=== PATIENT | male | born 1950 | race Caucasian/White ===

== ENCOUNTER 2017-02-12 17:33 | Emergency (ER) | payer SELFPAY ==
[~2017-02-12] VITALS: Ht 182.9 cm; Wt 80.0 kg
[2017-02-12] MEDS ORDERED: AMOXICILLIN/POTASSIUM CLAVULANATE 875/125MG TAB PO ONE (19:30)
[2017-02-12] MEDS ORDERED: KETOROLAC 60MG/2ML VIAL IM ONE (19:30)
[2017-02-12] MEDS ORDERED: TRAMADOL 50MG TABLET PO ONE (19:30)
[2017-02-12 23:14] VITALS: BP 175/88
== END 2017-02-12 23:18 | disposition home or self-care (01) ==
LOC: ER 17:33
DX: S92.355A Nondisplaced fracture of fifth metatarsal bone, left foot, initial encounter for closed fracture (principal); I10 Essential (primary) hypertension; E11.9 Type 2 diabetes mellitus without complications; F17.210 Nicotine dependence, cigarettes, uncomplicated; V19.3XXA Pedal cyclist (driver) (passenger) injured in unspecified nontraffic accident, initial encounter; Y93.89 Activity, other specified; Y92.89 Other specified places as the place of occurrence of the external cause
CPT/HCPCS: 73630; 96372; 99284; J1885; Z7610

== ENCOUNTER 2017-02-15 10:04 | Emergency (ER) | payer SELFPAY ==
[~2017-02-15] VITALS: Ht 172.7 cm; Wt 73.0 kg
[2017-02-15] MEDS ORDERED: IBUPROFEN 600MG TABLET PO ONE (12:00)
[2017-02-15 13:14] VITALS: BP 209/87
== END 2017-02-15 13:35 | disposition home or self-care (01) ==
LOC: ER 10:04
DX: S92.352A Displaced fracture of fifth metatarsal bone, left foot, initial encounter for closed fracture (principal); E11.9 Type 2 diabetes mellitus without complications; I10 Essential (primary) hypertension; F17.200 Nicotine dependence, unspecified, uncomplicated; V98.8XXA Other specified transport accidents, initial encounter; Y93.55 Activity, bike riding; Y99.8 Other external cause status; Y92.89 Other specified places as the place of occurrence of the external cause
CPT/HCPCS: 29515; 99283; Z7610

== ENCOUNTER 2018-08-09 20:55 | Inpatient (IN) | payer MEDICAID, OTHER ==
[~2018-08-09] VITALS: Ht 172.7 cm; Wt 89.8 kg
[2018-08-09] MEDS ORDERED: METHYLPREDNISOLONE SOD SUCC 125 MG/2 ML VIAL IV STA (21:02)
[2018-08-09] MEDS ORDERED: IPRATROPIUM BROMIDE (0.02%) 0.5MG/2.5ML NEB HHN STA (21:02)
[2018-08-09] MEDS ORDERED: MAGNESIUM 2 G PREMIX 50 ML IV ONE (21:15)
[2018-08-09 21:25] LABS: BASOPHILS % 0.9 % (0.0-2.0); EOSINOPHILS % 6.3 % (0.0-5.0); HEMATOCRIT. 30.7 % (42.0-52.0); HEMOGLOBIN. 10.1 g/dL (14.0-18.0); LYMPHOCYTES % 21.9 % (20.0-50.0); MEAN CORPUSCULAR HEMOGLOBIN 30.1 pg (28.0-32.0); MEAN CORPUSCULAR VOLUME 91.2 fL (80.0-94.0); MEAN PLATELET VOLUME 10.6 fl (7.4-10.4); MONOCYTES % 10.2 % (2.0-8.0); NEUTROPHILS % 60.7 % (40.0-76.0); PLATELET 227 x1000/uL (130-400); RED BLOOD CELL COUNT 3.36 mill/uL (4.7-6.1); RED CELL DISTRIBUTION WIDTH 13.6 % (11.6-14.6)
[2018-08-09 21:28] LABS: CHLORIDE 105 mEq/L (98-107)
[2018-08-09] MEDS ORDERED: ALBUTEROL (0.083%) 2.5MG/3ML NEB HHN SCH (21:30)
[2018-08-09] MEDS ORDERED: LEVOFLOXACIN 750MG PREMIX 150 ML IV ONE (22:30)
[2018-08-10] VITALS (26 sets, daily range): BP systolic 116–201; BP diastolic 48–110
[2018-08-10] MEDS ORDERED: AMLO10TA80 PO (01:22)
[2018-08-10] MEDS ORDERED: DOCU-150 PO (01:22)
[2018-08-10] MEDS ORDERED: SODI325T PO (01:22)
[2018-08-10] MEDS ORDERED: DOCU100T PO (01:22)
[2018-08-10] MEDS ORDERED: ATOR-2 PO (01:22)
[2018-08-10] MEDS ORDERED: FURO-151 PO (01:22)
[2018-08-10] MEDS ORDERED: INSU100I13 SQ (01:22)
[2018-08-10] MEDS ORDERED: HYDR-4135 PO (01:22)
[2018-08-10] MEDS ORDERED: LABE200T28 PO (01:22)
[2018-08-10] MEDS ORDERED: LANTUSUD SUBCUT (01:22)
[2018-08-10] MEDS ORDERED: BISA-81 PO (01:22)
[2018-08-10] MEDS ORDERED: ONDANSETRON HCL 4MG/2ML INJ IV PRN (02:15)
[2018-08-10] MEDS ORDERED: PIPERACILLIN/TAZ 3.375G PREMIX 50 ML IV SCH (02:15)
[2018-08-10] MEDS ORDERED: IPRATROPIUM/ALBUTEROL 0.5-3(2.5)MG/3ML NEB INH PRN (02:15)
[2018-08-10] MEDS ORDERED: ACETAMINOPHEN 325MG TABLET PO PRN (02:15)
[2018-08-10] MEDS ORDERED: GUAIFENESIN 200MG/10ML SUGAR FREE UDC PO PRN (02:15)
[2018-08-10] MEDS ORDERED: DEXTROSE 50% WATER 50ML SYRINGE IV PRN (02:30)
[2018-08-10] MEDS: CLONIDINE 0.1MG TABLET PO PRN ×2 (02:52→11:46)
[2018-08-10] MEDS: PIPERACILLIN/TAZ 2.25G PREMIX 50 ML IV SCH ×2 (04:07→11:44)
[2018-08-10] MEDS: INSULIN LISPRO 100 UNITS/ML SUBCUT SCH ×5 (05:16→21:40)
[2018-08-10] MEDS: METHYLPREDNISOLONE SOD SUCC 40 MG/ML VIAL IV SCH ×2 (05:51→13:07)
[2018-08-10] MEDS ORDERED: IPRATROPIUM/ALBUTEROL 0.5-3(2.5)MG/3ML NEB INH SCH (06:00)
[2018-08-10 07:37] LABS: BG BASE EXCESS -8.7 mmol/L (-2.0-2.0); BG CARBOXYHEMOGLOBIN 0.3 % (0.5-1.5); BG DEOXYHEMOGLOBIN 3.4 % (0.0-5.0); BG HCO3 ACT 16.2 mmol/L (22.0-26.0); BG METHEMOGLOBIN 0.3 % (0.0-1.5); BG OXYGEN SATURATION 96.6 % (92.0-98.5); BG PCO2 30.7 mmHg (35.0-45.0); BG PH 7.339 (7.350-7.450); BG PO2 98.4 mmHg (75.0-100.0); BG SAMPLE SITE RIGHT RADIAL; BG TOTAL HEMOGLOBIN 8.7 g/dL (12.0-18.0); BG VENT MODE NASAL CANNULA
[2018-08-10] MEDS: BLOOD SUGAR DIAGNOSTIC STRIP TEST SCH ×4 (07:49→21:01)
[2018-08-10 08:05] LABS: CREATINE KINASE MB FRACTION 26.2 ng/mL (0.5-3.6)
[2018-08-10] MEDS ORDERED: FUROSEMIDE 40MG/4ML VIAL IV SCH (09:00)
[2018-08-10] MEDS ORDERED: ENOXAPARIN 80MG/0.8ML SYR SUBCUT SCH (09:00)
[2018-08-10] MEDS: AMLODIPINE 10MG TABLET PO SCH (09:24)
[2018-08-10] MEDS ORDERED: HEPARIN 25,000 UNITS PREMIX 500 ML IV SCH (11:15)
[2018-08-10] MEDS ORDERED: INSULIN LISPRO 100 UNITS/ML SUBCUT NR (13:00)
[2018-08-10] MEDS: NITROGLYCERIN OINT 1GM/INCH UDPKT TD SCH (14:04)
[2018-08-10] MEDS ORDERED: NITROGLYCERIN 0.2MG/HR PATCH TOP SCH (14:30)
[2018-08-10] MEDS: NICOTINE 21MG PATCH TD SCH (16:45)
[2018-08-10 16:56] LABS: INR 1.2; PARTIAL THROMBOPLASTIN TIME 30.1 sec (23.4-31.0); PROTHROMBIN TIME 11.6 sec (9.1-11.1)
[2018-08-10 17:00] LABS: PHOSPHORUS 5.1 mg/dL (2.5-4.9)
[2018-08-10 17:04] LABS: T4 FREE 0.84 ng/dL (0.76-1.46)
[2018-08-10 17:05] LABS: CREATINE KINASE MB FRACTION 18.4 ng/mL (0.5-3.6)
[2018-08-10] MEDS ORDERED: FUROSEMIDE 100MG/10ML VIAL IV SCH (17:15)
[2018-08-10] MEDS ORDERED: ASPIRIN 81MG TABLET PO NR (18:15)
[2018-08-10] MEDS ORDERED: INSULIN GLARGINE UD 100 UNITS/ML SYR SUBCUT NR (21:30)
[2018-08-10] MEDS: ATORVASTATIN CALCIUM 40MG TABLET PO SCH (21:39)
[2018-08-10] MEDS: CARVEDILOL 3.125 MG TABLET PO SCH (21:39)
[2018-08-11] VITALS (51 sets, daily range): BP systolic 104–195; BP diastolic 43–88
[2018-08-11] MEDS: NITROGLYCERIN OINT 1GM/INCH UDPKT TD SCH ×2 (01:43→13:39)
[2018-08-11 03:41] LABS: CLARITY URINE CLEAR (CLEAR); COLOR URINE ORANGE (YELLOW); KETONES URINE NEGATIVE (NEGATIVE); LEUKOCYTE ESTERASE URINE NEGATIVE (NEGATIVE); NITRITE URINE NEGATIVE (NEGATIVE); OCCULT BLOOD URINE 2+ (NEGATIVE); PROTEIN URINE 4+ (NEGATIVE); SPECIFIC GRAVITY URINE 1.015 (1.005-1.030); UROBILINOGEN URINE 0.2 E.U./dL (0.2-1.0)
[2018-08-11 03:49] LABS: *AMPHETAMINES SCREEN URINE NEGATIVE (NEGATIVE)
[2018-08-11 03:50] LABS: *BARBITURATES SCREEN URINE NEGATIVE (NEGATIVE); *BENZODIAZEPINES SCREEN URINE NEGATIVE (NEGATIVE); *COCAINE SCREEN URINE NEGATIVE (NEGATIVE); CANNABINOID URINE SCREEN NEGATIVE (NEGATIVE); METHADONE URINE SCREEN NEGATIVE (NEGATIVE); OPIATES URINE SCREEN NEGATIVE (NEGATIVE); PHENCYCLIDINE URINE SCREEN NEGATIVE (NEGATIVE)
[2018-08-11] MEDS ORDERED: HEPARIN BOLUS PRN aPTT <30 IV (06:00)
[2018-08-11] MEDS ORDERED: HEPARIN 60 UNITS/KG BOLUS IV NR (06:00)
[2018-08-11] MEDS: HEPARIN 25,000 UNITS PREMIX 500 ML IV SCH ×2 (06:15→14:36)
[2018-08-11 06:43] LABS: HEMOGLOBIN. 8.7 g/dL (14.0-18.0); MEAN CORPUSCULAR VOLUME 89.8 fL (80.0-94.0); PLATELET 207 x1000/uL (130-400); RED CELL DISTRIBUTION WIDTH 13.4 % (11.6-14.6)
[2018-08-11 06:49] LABS: CHLORIDE 105 mEq/L (98-107)
[2018-08-11 06:57] LABS: HDL CHOLESTEROL 46 mg/dL (40-59)
[2018-08-11 06:58] LABS: LDL CHOLESTEROL 80 mg/dL (5-100)
[2018-08-11] MEDS: BLOOD SUGAR DIAGNOSTIC STRIP TEST SCH ×4 (08:41→21:00)
[2018-08-11] MEDS: INSULIN LISPRO 100 UNITS/ML SUBCUT SCH ×4 (08:48→20:33)
[2018-08-11] MEDS: CARVEDILOL 3.125 MG TABLET PO SCH ×2 (08:49→20:32)
[2018-08-11] MEDS: ASPIRIN 81MG TABLET PO SCH (08:49)
[2018-08-11] MEDS: NICOTINE 21MG PATCH TD SCH (08:49)
[2018-08-11] MEDS: AMLODIPINE 10MG TABLET PO SCH (08:49)
[2018-08-11] MEDS: INSULIN GLARGINE UD 100 UNITS/ML SYR SUBCUT SCH (10:30)
[2018-08-11 12:43] LABS: HEPATITIS B SURFACE AB < 3.1 mIU/mL
[2018-08-11 12:53] LABS: HEPATITIS B SURFACE ANTIGEN NEGATIVE
[2018-08-11 13:06] LABS: PLATELET ESTIMATE NORMAL
[2018-08-11] MEDS ORDERED: HEPARIN SODIUM 1,000 UNIT/1ML VIAL IV NR (14:45)
[2018-08-11] MEDS: HEPARIN BOLUS PRN aPTT 30-44 IV ×2 (14:50→21:13)
[2018-08-11] MEDS ORDERED: MANNITOL 12.5G (25%) VIAL 50ML IV NR (14:55)
[2018-08-11] MEDS: HYDRALAZINE 20MG/ML VIAL IV PRN (18:15)
[2018-08-11] MEDS: ATORVASTATIN CALCIUM 40MG TABLET PO SCH (20:32)
[2018-08-12] VITALS (38 sets, daily range): BP systolic 136–200; BP diastolic 57–132
[2018-08-12] MEDS: NITROGLYCERIN OINT 1GM/INCH UDPKT TD SCH ×2 (02:36→14:17)
[2018-08-12] MEDS: POLYVINYL ALCOHOL OPHTH DROPS 15ML BOTHEYE SCH ×5 (02:36→23:12)
[2018-08-12] MEDS: HYDRALAZINE 20MG/ML VIAL IV PRN (04:05)
[2018-08-12] MEDS: HEPARIN 25,000 UNITS PREMIX 500 ML IV SCH ×2 (06:17→23:13)
[2018-08-12 07:50] LABS: BASOPHILS % 1.1 % (0.0-2.0); EOSINOPHILS % 2.9 % (0.0-5.0); HEMATOCRIT. 27.9 % (42.0-52.0); HEMOGLOBIN. 9.2 g/dL (14.0-18.0); LYMPHOCYTES % 16.6 % (20.0-50.0); MEAN CORPUSCULAR HEMOGLOBIN 29.7 pg (28.0-32.0); MEAN CORPUSCULAR VOLUME 89.7 fL (80.0-94.0); MEAN PLATELET VOLUME 11.1 fl (7.4-10.4); MONOCYTES % 11.2 % (2.0-8.0); NEUTROPHILS % 68.2 % (40.0-76.0); PLATELET 197 x1000/uL (130-400); RED CELL DISTRIBUTION WIDTH 13.8 % (11.6-14.6)
[2018-08-12] MEDS: BLOOD SUGAR DIAGNOSTIC STRIP TEST SCH ×4 (07:51→21:46)
[2018-08-12] MEDS: AMLODIPINE 10MG TABLET PO SCH (08:09)
[2018-08-12] MEDS: CARVEDILOL 3.125 MG TABLET PO SCH ×2 (08:09→21:42)
[2018-08-12] MEDS: ASPIRIN 81MG TABLET PO SCH (08:09)
[2018-08-12] MEDS: INSULIN LISPRO 100 UNITS/ML SUBCUT SCH ×4 (08:10→21:45)
[2018-08-12] MEDS: NICOTINE 21MG PATCH TD SCH (08:10)
[2018-08-12 08:11] LABS: PHOSPHORUS 5.8 mg/dL (2.5-4.9)
[2018-08-12] MEDS: INSULIN GLARGINE UD 100 UNITS/ML SYR SUBCUT SCH (09:48)
[2018-08-12] MEDS: HEPARIN BOLUS PRN aPTT 30-44 IV (14:55)
[2018-08-12] MEDS: CLONIDINE 0.1MG TABLET PO PRN (17:18)
[2018-08-12] MEDS: ATORVASTATIN CALCIUM 40MG TABLET PO SCH (21:42)
[2018-08-13] VITALS (41 sets, daily range): BP systolic 131–200; BP diastolic 58–111
[2018-08-13] MEDS: NITROGLYCERIN OINT 1GM/INCH UDPKT TD SCH ×2 (05:01→15:47)
[2018-08-13] MEDS: POLYVINYL ALCOHOL OPHTH DROPS 15ML BOTHEYE SCH ×4 (05:01→23:53)
[2018-08-13] MEDS: HYDRALAZINE 20MG/ML VIAL IV PRN (05:02)
[2018-08-13 06:05] LABS: BASOPHILS % 1.3 % (0.0-2.0); EOSINOPHILS % 4.8 % (0.0-5.0); HEMOGLOBIN. 8.4 g/dL (14.0-18.0); LYMPHOCYTES % 17.4 % (20.0-50.0); MEAN CORPUSCULAR HEMOGLOBIN 30.3 pg (28.0-32.0); MEAN CORPUSCULAR VOLUME 90.1 fL (80.0-94.0); MEAN PLATELET VOLUME 10.8 fl (7.4-10.4); MONOCYTES % 12.2 % (2.0-8.0); NEUTROPHILS % 64.3 % (40.0-76.0); PLATELET 179 x1000/uL (130-400); RED BLOOD CELL COUNT 2.77 mill/uL (4.7-6.1); RED CELL DISTRIBUTION WIDTH 13.5 % (11.6-14.6)
[2018-08-13 06:24] LABS: PHOSPHORUS 7.5 mg/dL (2.5-4.9)
[2018-08-13] MEDS: INSULIN LISPRO 100 UNITS/ML SUBCUT SCH ×4 (08:20→22:50)
[2018-08-13] MEDS: BLOOD SUGAR DIAGNOSTIC STRIP TEST SCH ×4 (08:42→21:00)
[2018-08-13] MEDS ORDERED: IODIXANOL 320MG/ML 100 ML BOTTLE IV ONE (09:03)
[2018-08-13] MEDS ORDERED: LIDOCAINE HCL 1% 20ML VIAL (Pyxis) INJ ONE ×2 (09:03→11:51)
[2018-08-13] MEDS: AMLODIPINE 10MG TABLET PO SCH (09:33)
[2018-08-13] MEDS: ASPIRIN 81MG TABLET PO SCH (09:34)
[2018-08-13] MEDS: CARVEDILOL 3.125 MG TABLET PO SCH ×2 (09:34→20:45)
[2018-08-13] MEDS: NICOTINE 21MG PATCH TD SCH (09:37)
[2018-08-13] MEDS: INSULIN GLARGINE UD 100 UNITS/ML SYR SUBCUT SCH (10:00)
[2018-08-13] MEDS ORDERED: HEPARIN SODIUM 1,000 UNIT/1ML VIAL IV ONE (10:11)
[2018-08-13] MEDS ORDERED: IOHEXOL-300 100 ML BOTTLE ONE (11:51)
[2018-08-13] MEDS ORDERED: MIDAZOLAM HCL 2 MG/2 ML VIAL ONE (12:25)
[2018-08-13] MEDS ORDERED: FENTANYL CITRATE/PF 50MCG/ML 2ML VIAL ONE (12:26)
[2018-08-13] MEDS ORDERED: ACETAMINOPHEN 325MG TABLET PO PRN (13:00)
[2018-08-13] MEDS ORDERED: ATROPINE SULFATE 1MG/10ML SYR IV PRN (13:00)
[2018-08-13] MEDS: ATORVASTATIN CALCIUM 40MG TABLET PO SCH (20:45)
[2018-08-13] MEDS: CLONIDINE 0.1MG TABLET PO PRN (21:30)
[2018-08-14] VITALS (54 sets, daily range): BP systolic 120–182; BP diastolic 53–79
[2018-08-14] MEDS: NITROGLYCERIN OINT 1GM/INCH UDPKT TD SCH ×2 (01:34→12:48)
[2018-08-14] MEDS: POLYVINYL ALCOHOL OPHTH DROPS 15ML BOTHEYE SCH ×4 (05:06→23:25)
[2018-08-14] MEDS: CLONIDINE 0.1MG TABLET PO PRN ×2 (05:36→19:00)
[2018-08-14 06:08] LABS: EOSINOPHILS % 4.5 % (0.0-5.0); HEMATOCRIT. 27.6 % (42.0-52.0); HEMOGLOBIN. 9.2 g/dL (14.0-18.0); MEAN CORPUSCULAR HEMOGLOBIN 30.1 pg (28.0-32.0); MEAN CORPUSCULAR VOLUME 90.9 fL (80.0-94.0); MEAN PLATELET VOLUME 10.7 fl (7.4-10.4); MONOCYTES % 10.6 % (2.0-8.0); NEUTROPHILS % 70.9 % (40.0-76.0); PLATELET 170 x1000/uL (130-400); RED BLOOD CELL COUNT 3.04 mill/uL (4.7-6.1); RED CELL DISTRIBUTION WIDTH 13.6 % (11.6-14.6)
[2018-08-14 06:58] LABS: PHOSPHORUS 6.2 mg/dL (2.5-4.9)
[2018-08-14] MEDS: BLOOD SUGAR DIAGNOSTIC STRIP TEST SCH ×10 (07:50→23:41)
[2018-08-14] MEDS: INSULIN LISPRO 100 UNITS/ML SUBCUT SCH ×3 (08:06→17:16)
[2018-08-14] MEDS: PANTOPRAZOLE SODIUM 40 MG/VIAL IV SCH (08:15)
[2018-08-14] MEDS: ASPIRIN 81MG TABLET PO SCH (08:15)
[2018-08-14] MEDS: CARVEDILOL 3.125 MG TABLET PO SCH ×2 (08:15→20:43)
[2018-08-14] MEDS: AMLODIPINE 10MG TABLET PO SCH (08:15)
[2018-08-14] MEDS: INSULIN GLARGINE UD 100 UNITS/ML SYR SUBCUT SCH (09:57)
[2018-08-14] MEDS ORDERED: ALPRAZOLAM 0.25 MG TABLET PO PRN (17:00)
[2018-08-14] MEDS ORDERED: NITROGLYCERIN 0.4MG TABLET SL SL PRN (17:00)
[2018-08-14] MEDS ORDERED: INSULIN REGULAR (DRIP) 100 UNITS in SODIUM CHLORIDE 0.9% 99 ML IV PRN (17:45)
[2018-08-14] MEDS ORDERED: DEXTROSE 50% WATER 50ML SYRINGE IV PRN ×2 (17:45)
[2018-08-14] MEDS: INSULIN REGULAR (DRIP) 100 UNITS in SODIUM CHLORIDE 0.9% 100 ML IV SCH (18:13)
[2018-08-14] MEDS: ATORVASTATIN CALCIUM 40MG TABLET PO SCH (20:42)
[2018-08-14] MEDS: ALLOPURINOL 300 MG TABLET PO SCH (20:42)
[2018-08-14] MEDS ORDERED: DIPHENHYDRAMINE 25MG CAPSULE PO PRN (21:00)
[2018-08-14] MEDS ORDERED: BISACODYL 10MG SUPP PR PRN (21:00)
[2018-08-14] MEDS ORDERED: DOCUSATE SODIUM 100MG CAPSULE PO SCH (21:00)
[2018-08-14] MEDS ORDERED: ASCORBIC ACID 500 MG TABLET PO SCH (21:00)
[2018-08-14] MEDS ORDERED: CHLORHEXIDINE GLUCONATE 4% EXTERNAL USE TOP SCH (21:00)
[2018-08-15] VITALS (54 sets, daily range): BP systolic 82–268; BP diastolic 40–267
[2018-08-15] MEDS: BLOOD SUGAR DIAGNOSTIC STRIP TEST SCH ×12 (01:41→23:53)
[2018-08-15] MEDS: NITROGLYCERIN OINT 1GM/INCH UDPKT TD SCH (01:46)
[2018-08-15] MEDS: IPRATROPIUM/ALBUTEROL 0.5-3(2.5)MG/3ML NEB HHN SCH (02:33)
[2018-08-15] MEDS: HYDRALAZINE 20MG/ML VIAL IV PRN (03:33)
[2018-08-15] MEDS: POLYVINYL ALCOHOL OPHTH DROPS 15ML BOTHEYE SCH ×4 (05:21→23:51)
[2018-08-15] MEDS: ALLOPURINOL 300 MG TABLET PO SCH (05:21)
[2018-08-15 05:35] LABS: EOSINOPHILS % 4.6 % (0.0-5.0); HEMATOCRIT. 34.1 % (42.0-52.0); HEMOGLOBIN. 11.3 g/dL (14.0-18.0); LYMPHOCYTES % 14.6 % (20.0-50.0); MEAN CORPUSCULAR HEMOGLOBIN 30.1 pg (28.0-32.0); MEAN CORPUSCULAR VOLUME 90.7 fL (80.0-94.0); MEAN PLATELET VOLUME 10.5 fl (7.4-10.4); MONOCYTES % 10.3 % (2.0-8.0); NEUTROPHILS % 69.5 % (40.0-76.0); PLATELET 155 x1000/uL (130-400); RED BLOOD CELL COUNT 3.76 mill/uL (4.7-6.1); RED CELL DISTRIBUTION WIDTH 13.7 % (11.6-14.6)
[2018-08-15 05:41] LABS: CHLORIDE 113 mEq/L (98-107)
[2018-08-15 05:43] LABS: INR 1.2; PROTHROMBIN TIME 11.6 sec (9.1-11.1)
[2018-08-15] MEDS ORDERED: NOREPINEPHRINE 4 MG in DEXT 5% WATER 246 ML IV SCH (06:00)
[2018-08-15] MEDS ORDERED: VANCOMYCIN 1G PREMIX 200ML IV SCH (06:00)
[2018-08-15] MEDS ORDERED: NICARDIPINE 40MG/200ML PREMIX 200 ML IV SCH (06:00)
[2018-08-15] MEDS ORDERED: DOBUTAMINE HCL IN DEXTROSE 5 % 250 ML IV SCH (06:00)
[2018-08-15] MEDS ORDERED: PAPAVERINE HCL 180MG in SODIUM CHLORIDE 0.9% 24ML IV SCH (06:00)
[2018-08-15] MEDS ORDERED: DEL NIDO ELECTROLYTE-S(PH 7.4) 1,000 ML IV SCH ×2 (06:00)
[2018-08-15] MEDS ORDERED: AMINOCAPROIC ACID 10,000 MG in SODIUM CHLORIDE 0.9% 460 ML IV SCH (06:00)
[2018-08-15] MEDS ORDERED: EPINEPHRINE 4 MG in DEXT 5% WATER 246 ML IV SCH (06:00)
[2018-08-15] MEDS ORDERED: CEFAZOLIN 2,000 MG in DEXT 5% WATER 100 ML IV SCH (06:00)
[2018-08-15] MEDS ORDERED: CEFAZOLIN SODIUM 1000MG/VIAL ONE (06:14)
[2018-08-15] MEDS ORDERED: EPHEDRINE SULFATE 50MG/ML VIAL ONE (06:14)
[2018-08-15] MEDS ORDERED: HEPARIN 1000 UNITS/ML 10ML ONE ×3 (06:14→07:31)
[2018-08-15] MEDS ORDERED: ONDANSETRON HCL 4MG/2ML INJ ONE (06:15)
[2018-08-15] MEDS ORDERED: PROTAMINE SULFATE 10MG/ML VIAL 25ML IV ONE (06:15)
[2018-08-15] MEDS ORDERED: ROCURONIUM BROMIDE 10MG/ML VIAL 5ML IV ONE (06:15)
[2018-08-15] MEDS ORDERED: ETOMIDATE 2MG/ML 10ML VIAL IV ONE (06:16)
[2018-08-15] MEDS ORDERED: ALFENTANIL HCL 500 MCG/ML 2ML AMPUL IJ ONE (06:19)
[2018-08-15] MEDS ORDERED: MIDAZOLAM HCL 2 MG/2 ML VIAL ONE (06:22)
[2018-08-15] MEDS ORDERED: MIDAZOLAM HCL 5 MG/ML VIAL ONE (06:22)
[2018-08-15] MEDS ORDERED: SUFENTANIL CITRATE 50 MCG/ML 5ML AMPUL IV ONE (06:22)
[2018-08-15] MEDS ORDERED: DOPAMINE 400MG/250ML PREMIX 250 ML IV ONE (06:49)
[2018-08-15] MEDS ORDERED: NITROGLYCERIN 50MG PREMIX 250 ML IV ONE (06:49)
[2018-08-15] MEDS ORDERED: THROMBIN (BOVINE) 5000 UNITS/VIAL TOP ONE ×4 (06:57→14:11)
[2018-08-15] MEDS ORDERED: LIDOCAINE HCL/PF 2% 20MG/ML 5 ML/VIAL ONE (07:10)
[2018-08-15] MEDS ORDERED: NORMAL SALINE 0.9% 10 ML SYR ONE (07:13)
[2018-08-15] MEDS ORDERED: METHYLENE BLUE 50 MG/10 ML AMP IV ONE (07:13)
[2018-08-15] MEDS ORDERED: BACITRACIN 15GM TUBE TOP ONE (07:13)
[2018-08-15] MEDS ORDERED: GELATIN SPONGE,ABSORBABLE 12-7MM SPONGE ONE (07:13)
[2018-08-15] MEDS ORDERED: BACITRACIN 50,000 UNITS/VIAL ONE (07:13)
[2018-08-15] MEDS ORDERED: AMINOCAPROIC ACID 250 MG/ML 20ML VIAL ONE (07:29)
[2018-08-15] MEDS ORDERED: AMIODARONE HCL 50MG/ML 3ML VIAL IV ONE (07:29)
[2018-08-15] MEDS ORDERED: PHENYLEPHRINE HCL 10 MG/ML 1ML (IV VIAL) IV ONE (07:30)
[2018-08-15] MEDS ORDERED: CALCIUM CHLORIDE 1GM/10ML SYR IV ONE ×2 (07:30→13:53)
[2018-08-15] MEDS ORDERED: MANNITOL 20% 0 ML IV ONE (07:30)
[2018-08-15] MEDS ORDERED: ALBUMIN HUMAN 25GM/100ML (25%) IV ONE (07:30)
[2018-08-15] MEDS ORDERED: SODIUM BICARBONATE 8.4% 1 MEQ/ML 50ML SYR IV ONE (07:31)
[2018-08-15] MEDS ORDERED: HEPARIN 10,000 UNITS/ML VIAL ONE ×2 (07:31→07:32)
[2018-08-15] MEDS: PANTOPRAZOLE SODIUM 40 MG/VIAL IV SCH (09:00)
[2018-08-15] MEDS ORDERED: CHLORHEXIDINE GLUCONATE 4% EXTERNAL USE TOP SCH (09:00)
[2018-08-15] MEDS ORDERED: SKIN ADHESIVE 0.7 GM EA TOP ONE (11:02)
[2018-08-15] MEDS ORDERED: DESMOPRESSIN ACETATE 4MCG/ML AMP IV SCH (13:30)
[2018-08-15] MEDS ORDERED: DESMOPRESSIN ACETATE 4MCG/ML AMP ONE (13:32)
[2018-08-15] MEDS ORDERED: EPINEPHRINE 0.1MG/ML (1:10,000) 10ML SYR ONE (13:53)
[2018-08-15] MEDS ORDERED: SODIUM BICARBONATE 7.5% 0.9 MEQ/ML 50ML SYR IV ONE (13:53)
[2018-08-15 13:54] LABS: HEMATOCRIT 25.4 % (42.0-52.0); HEMOGLOBIN 8.6 g/dL (14.0-18.0); MEAN CORPUSCULAR HEMOGLOBIN 30.6 pg (28.0-32.0); MEAN CORPUSCULAR VOLUME 90.6 fL (80.0-94.0); RED BLOOD CELL COUNT 2.81 mill/uL (4.7-6.1); RED CELL DISTRIBUTION WIDTH 13.9 % (11.6-14.6)
[2018-08-15 14:00] LABS: INR 1.4; PARTIAL THROMBOPLASTIN TIME 26.7 sec (23.4-31.0); PROTHROMBIN TIME 14.3 sec (9.1-11.1)
[2018-08-15 14:03] LABS: PHOSPHORUS 5.5 mg/dL (2.5-4.9)
[2018-08-15 14:11] LABS: PLATELET 77 x1000/uL (130-400)
[2018-08-15] MEDS ORDERED: SODIUM CHLORIDE 0.9% 500 ML IV PRN (15:53)
[2018-08-15] MEDS ORDERED: ONDANSETRON HCL 4MG/2ML INJ IV PRN (16:00)
[2018-08-15] MEDS ORDERED: OXYCODONE HCL/ACETAMINOPHEN 5/325MG TABLET PO PRN ×2 (16:00)
[2018-08-15] MEDS ORDERED: ACETAMINOPHEN 325MG TABLET PO PRN (16:00)
[2018-08-15] MEDS: MAGNESIUM HYDROXIDE 400MG/5ML 30ML UDC PO SCH ×3 (16:00→23:54)
[2018-08-15] MEDS ORDERED: ALBUMIN HUMAN 12.5G/250ML (5%) IV PRN (16:00)
[2018-08-15] MEDS ORDERED: DOPAMINE 400MG/250ML PREMIX 250 ML IV SCH (16:15)
[2018-08-15] MEDS ORDERED: NITROGLYCERIN 50MG PREMIX 250 ML IV SCH (16:15)
[2018-08-15 16:29] LABS: BG CARBOXYHEMOGLOBIN 0.3 % (0.5-1.5); BG DEOXYHEMOGLOBIN 1.5 % (0.0-5.0); BG FRACTION INSPIRED OXYGEN 100; BG HCO3 ACT 22.6 mmol/L (22.0-26.0); BG METHEMOGLOBIN 0.4 % (0.0-1.5); BG OXYGEN SATURATION 98.5 % (92.0-98.5); BG OXYHEMOGLOBIN 97.8 % (94.0-97.0); BG PH 7.393 (7.350-7.450); BG PO2 202.1 mmHg (75.0-100.0); BG PRESSURE SUPPORT 10; BG SAMPLE SITE A-LINE; BG TOTAL HEMOGLOBIN 8.1 g/dL (12.0-18.0); BG VENT MODE VENT - CPAP
[2018-08-15] MEDS: DEXT 5%/0.45% NACL 1000ML 1,000 ML IV SCH (16:56)
[2018-08-15 16:57] LABS: BASOPHILS % 0.5 % (0.0-2.0); EOSINOPHILS % 1.7 % (0.0-5.0); HEMATOCRIT. 22.9 % (42.0-52.0); HEMOGLOBIN. 7.6 g/dL (14.0-18.0); LYMPHOCYTES % 9.3 % (20.0-50.0); MEAN CORPUSCULAR HEMOGLOBIN 29.8 pg (28.0-32.0); MEAN CORPUSCULAR VOLUME 89.8 fL (80.0-94.0); MEAN PLATELET VOLUME 8.9 fl (7.4-10.4); MONOCYTES % 6.9 % (2.0-8.0); NEUTROPHILS % 81.6 % (40.0-76.0); PLATELET 157 x1000/uL (130-400); RED BLOOD CELL COUNT 2.54 mill/uL (4.7-6.1); RED CELL DISTRIBUTION WIDTH 14.2 % (11.6-14.6)
[2018-08-15] MEDS: INSULIN REGULAR (DRIP) 100 UNITS in SODIUM CHLORIDE 0.9% 99 ML IV SCH (16:57)
[2018-08-15 17:06] LABS: INR 1.3; PARTIAL THROMBOPLASTIN TIME 25.7 sec (23.4-31.0); PROTHROMBIN TIME 12.7 sec (9.1-11.1)
[2018-08-15 17:11] LABS: PHOSPHORUS 5.8 mg/dL (2.5-4.9)
[2018-08-15 17:52] LABS: BG BASE EXCESS -2.4 mmol/L (-2.0-2.0); BG CARBOXYHEMOGLOBIN 0.9 % (0.5-1.5); BG FRACTION INSPIRED OXYGEN 60; BG HCO3 ACT 22.8 mmol/L (22.0-26.0); BG METHEMOGLOBIN 0.4 % (0.0-1.5); BG OXYHEMOGLOBIN 95.7 % (94.0-97.0); BG PH 7.363 (7.350-7.450); BG PO2 105.8 mmHg (75.0-100.0); BG PRESSURE SUPPORT 10; BG SAMPLE SITE A-LINE; BG TOTAL HEMOGLOBIN 7.6 g/dL (12.0-18.0); BG VENT MODE VENT - CPAP
[2018-08-15] MEDS: DOCUSATE SODIUM 100MG CAPSULE PO SCH (18:00)
[2018-08-15] MEDS: MORPHINE SULFATE 4 MG/ML CPJ (NOT FOR IM USE) IV PRN ×2 (18:14→23:10)
[2018-08-15 19:29] LABS: BG CARBOXYHEMOGLOBIN 0.2 % (0.5-1.5); BG DEOXYHEMOGLOBIN 1.8 % (0.0-5.0); BG FRACTION INSPIRED OXYGEN 60; BG HCO3 ACT 21.6 mmol/L (22.0-26.0); BG METHEMOGLOBIN 0.2 % (0.0-1.5); BG OXYGEN SATURATION 98.2 % (92.0-98.5); BG OXYHEMOGLOBIN 97.8 % (94.0-97.0); BG PCO2 36.8 mmHg (35.0-45.0); BG PEEP (cmH2O) 0 cmH2O; BG PH 7.387 (7.350-7.450); BG PIP 11 cmH2O; BG PO2 155.9 mmHg (75.0-100.0); BG PRESSURE SUPPORT 10; BG SAMPLE SITE A-LINE; BG TIDAL VOLUME(mL) 522 mL; BG TOTAL HEMOGLOBIN 8.9 g/dL (12.0-18.0); BG VENT MODE VENT - CPAP
[2018-08-15 19:50] LABS: HEMATOCRIT 25.7 % (42.0-52.0); HEMOGLOBIN 8.5 g/dL (14.0-18.0); MEAN CORPUSCULAR HEMOGLOBIN 29.7 pg (28.0-32.0); MEAN CORPUSCULAR VOLUME 90.1 fL (80.0-94.0); PLATELET 129 x1000/uL (130-400); RED BLOOD CELL COUNT 2.85 mill/uL (4.7-6.1); RED CELL DISTRIBUTION WIDTH 13.9 % (11.6-14.6)
[2018-08-15 19:55] LABS: INR 1.3; PARTIAL THROMBOPLASTIN TIME 29.7 sec (23.4-31.0); PROTHROMBIN TIME 13.5 sec (9.1-11.1)
[2018-08-15 20:01] LABS: PHOSPHORUS 5.2 mg/dL (2.5-4.9)
[2018-08-15] MEDS ORDERED: EPINEPHRINE 1 MG in SODIUM CHLORIDE 0.9% 249 ML IV PRN (21:45)
[2018-08-15] MEDS ORDERED: ALBUMIN HUMAN 12.5G/250ML (5%) IV NR (22:00)
[2018-08-15 22:16] LABS: BG BASE EXCESS -3.7 mmol/L (-2.0-2.0); BG CARBOXYHEMOGLOBIN 0.8 % (0.5-1.5); BG DEOXYHEMOGLOBIN 3.7 % (0.0-5.0); BG FRACTION INSPIRED OXYGEN 10; BG HCO3 ACT 20.4 mmol/L (22.0-26.0); BG METHEMOGLOBIN 0.2 % (0.0-1.5); BG OXYGEN SATURATION 96.3 % (92.0-98.5); BG OXYHEMOGLOBIN 95.3 % (94.0-97.0); BG PCO2 33.2 mmHg (35.0-45.0); BG PEEP (cmH2O) 0 cmH2O; BG PH 7.407 (7.350-7.450); BG PIP 12 cmH2O; BG PO2 96.3 mmHg (75.0-100.0); BG PRESSURE SUPPORT 10; BG SAMPLE SITE A-LINE; BG TIDAL VOLUME(mL) 503 mL; BG TOTAL HEMOGLOBIN 8.3 g/dL (12.0-18.0); BG VENT MODE VENT - CPAP
[2018-08-16] VITALS (149 sets, daily range): BP systolic 0–197; BP diastolic -26–104
[2018-08-16 00:14] LABS: HEMATOCRIT. 22.4 % (42.0-52.0); HEMOGLOBIN. 7.4 g/dL (14.0-18.0); MEAN CORPUSCULAR HEMOGLOBIN 29.5 pg (28.0-32.0); MEAN CORPUSCULAR VOLUME 89.3 fL (80.0-94.0); MEAN PLATELET VOLUME 9.3 fl (7.4-10.4); PLATELET 120 x1000/uL (130-400); RED BLOOD CELL COUNT 2.51 mill/uL (4.7-6.1); RED CELL DISTRIBUTION WIDTH 13.9 % (11.6-14.6)
[2018-08-16 00:28] LABS: BG CARBOXYHEMOGLOBIN 0.5 % (0.5-1.5); BG FRACTION INSPIRED OXYGEN 40; BG HCO3 ACT 20.1 mmol/L (22.0-26.0); BG METHEMOGLOBIN 0.1 % (0.0-1.5); BG OXYHEMOGLOBIN 97.4 % (94.0-97.0); BG PCO2 36.8 mmHg (35.0-45.0); BG PH 7.355 (7.350-7.450); BG PO2 151.7 mmHg (75.0-100.0); BG SAMPLE SITE A-LINE; BG TOTAL HEMOGLOBIN 7.7 g/dL (12.0-18.0); BG VENT MODE MASK - AEROSOL
[2018-08-16] MEDS: BLOOD SUGAR DIAGNOSTIC STRIP TEST SCH ×24 (00:45→23:52)
[2018-08-16 01:10] LABS: BG BASE EXCESS -11.2 mmol/L (-2.0-2.0); BG CARBOXYHEMOGLOBIN 0.6 % (0.5-1.5); BG DEOXYHEMOGLOBIN 8.1 % (0.0-5.0); BG FRACTION INSPIRED OXYGEN 40; BG HCO3 ACT 17.8 mmol/L (22.0-26.0); BG METHEMOGLOBIN 0.3 % (0.0-1.5); BG OXYGEN SATURATION 91.8 % (92.0-98.5); BG PCO2 57.3 mmHg (35.0-45.0); BG PH 7.109 (7.350-7.450); BG SAMPLE SITE A-LINE; BG TOTAL HEMOGLOBIN 7.8 g/dL (12.0-18.0); BG VENT MODE MASK - AEROSOL
[2018-08-16] MEDS ORDERED: SODIUM BICARBONATE 8.4% 1 MEQ/ML 50ML SYR IV NR (01:15)
[2018-08-16 01:47] LABS: BG BASE EXCESS 1.2 mmol/L (-2.0-2.0); BG DEOXYHEMOGLOBIN 1.2 % (0.0-5.0); BG FRACTION INSPIRED OXYGEN 100; BG HCO3 ACT 24.7 mmol/L (22.0-26.0); BG OXYGEN SATURATION 98.8 % (92.0-98.5); BG OXYHEMOGLOBIN 97.8 % (94.0-97.0); BG PCO2 32.7 mmHg (35.0-45.0); BG PH 7.496 (7.350-7.450); BG SAMPLE SITE A-LINE; BG TOTAL HEMOGLOBIN 4.8 g/dL (12.0-18.0); BG VENT MODE AMBU BAG
[2018-08-16] MEDS ORDERED: THROMBIN (BOVINE) 5000 UNITS/VIAL TOP PRN (02:30)
[2018-08-16] MEDS ORDERED: METHYLPREDNISOLONE SOD SUCC 125 MG/2 ML VIAL IV ONE (02:30)
[2018-08-16] MEDS ORDERED: METHYLPREDNISOLONE SOD SUCC 125 MG/2 ML VIAL ONE (02:38)
[2018-08-16] MEDS ORDERED: WATER IV SCH (02:50)
[2018-08-16] MEDS ORDERED: TRANEXAMIC ACID IV SCH (02:50)
[2018-08-16] MEDS ORDERED: DEXT 5% IV SCH (02:50)
[2018-08-16] MEDS ORDERED: INSULIN REGULAR (DRIP) 100 UNITS in SODIUM CHLORIDE 0.9% 99 ML IV PRN (02:50)
[2018-08-16] MEDS ORDERED: MIDAZOLAM HCL 2 MG/2 ML VIAL ONE (02:57)
[2018-08-16] MEDS ORDERED: MIDAZOLAM HCL 5 MG/ML VIAL IV SCH (03:00)
[2018-08-16] MEDS ORDERED: MIDAZOLAM HCL 2 MG/2 ML VIAL IV ONE (03:00)
[2018-08-16] MEDS ORDERED: MORPHINE SULFATE 4 MG/ML CPJ (NOT FOR IM USE) IV SCH (03:00)
[2018-08-16] MEDS ORDERED: VANCOMYCIN 1 G PREMIX 200 ML IV SCH (03:20)
[2018-08-16] MEDS ORDERED: NORMAL SALINE 0.9% 10 ML SYR ONE ×2 (03:36→03:46)
[2018-08-16] MEDS ORDERED: BACITRACIN 50,000 UNITS/VIAL ONE ×2 (03:36→03:46)
[2018-08-16] MEDS: MAGNESIUM HYDROXIDE 400MG/5ML 30ML UDC PO SCH ×6 (04:00→23:30)
[2018-08-16] MEDS ORDERED: SODIUM BICARBONATE 8.4% 1 MEQ/ML 50ML SYR IV ONE (04:08)
[2018-08-16] MEDS ORDERED: CALCIUM CHLORIDE 1GM/10ML SYR IV ONE (04:08)
[2018-08-16] MEDS ORDERED: ROCURONIUM BROMIDE 10MG/ML VIAL 5ML IV ONE (04:08)
[2018-08-16] MEDS ORDERED: INSULIN REGULAR (HUMULIN R) 300UNITS/3ML ONE (04:20)
[2018-08-16] MEDS ORDERED: COAGULATION FACTOR VIIA RECOMB 2MG VIAL IV NR (04:30)
[2018-08-16] MEDS: POLYVINYL ALCOHOL OPHTH DROPS 15ML BOTHEYE SCH ×4 (06:00→23:25)
[2018-08-16 06:14] LABS: BG BASE EXCESS -4.7 mmol/L (-2.0-2.0); BG CARBOXYHEMOGLOBIN 0.8 % (0.5-1.5); BG DEOXYHEMOGLOBIN 1.3 % (0.0-5.0); BG FRACTION INSPIRED OXYGEN 100; BG HCO3 ACT 21.6 mmol/L (22.0-26.0); BG METHEMOGLOBIN 0.6 % (0.0-1.5); BG OXYGEN SATURATION 98.7 % (92.0-98.5); BG OXYHEMOGLOBIN 97.3 % (94.0-97.0); BG PCO2 46.5 mmHg (35.0-45.0); BG PH 7.284 (7.350-7.450); BG SAMPLE SITE A-LINE; BG TIDAL VOLUME(mL) 500 mL; BG TOTAL HEMOGLOBIN 5.5 g/dL (12.0-18.0); BG VENT MODE VENT - A/C; BG VENT RATE 16 set
[2018-08-16] MEDS ORDERED: MORPHINE SULFATE 4 MG/ML CPJ (NOT FOR IM USE) IV ONE (06:19)
[2018-08-16 06:53] LABS: BG BASE EXCESS -1.6 mmol/L (-2.0-2.0); BG CARBOXYHEMOGLOBIN 0.5 % (0.5-1.5); BG DEOXYHEMOGLOBIN 14.5 % (0.0-5.0); BG FRACTION INSPIRED OXYGEN 100; BG HCO3 ACT 23.2 mmol/L (22.0-26.0); BG METHEMOGLOBIN 0.3 % (0.0-1.5); BG OXYGEN SATURATION 85.4 % (92.0-98.5); BG OXYHEMOGLOBIN 84.7 % (94.0-97.0); BG PCO2 39.2 mmHg (35.0-45.0); BG PO2 49.1 mmHg (75.0-100.0); BG SAMPLE SITE PA LINE; BG TIDAL VOLUME(mL) 600 mL; BG TOTAL HEMOGLOBIN 9.2 g/dL (12.0-18.0); BG VENT MODE VENT - CPAP; BG VENT RATE 18 set
[2018-08-16] MEDS ORDERED: AMIODARONE HCL 900 MG in DEXT 5% WATER 500 ML IV PRN (07:00)
[2018-08-16] MEDS ORDERED: AMIODARONE HCL 900 MG in DEXT 5% WATER 482 ML IV PRN (07:00)
[2018-08-16] MEDS ORDERED: AMINOCAPROIC ACID 500 MG TABLET PO ONE (07:00)
[2018-08-16 07:06] LABS: CHLORIDE 108 mEq/L (98-107)
[2018-08-16 07:10] LABS: HEMATOCRIT. 24.9 % (42.0-52.0); HEMOGLOBIN. 8.7 g/dL (14.0-18.0); MEAN CORPUSCULAR HEMOGLOBIN 30.7 pg (28.0-32.0); MEAN CORPUSCULAR VOLUME 87.5 fL (80.0-94.0); MEAN PLATELET VOLUME 8.7 fl (7.4-10.4); PLATELET 113 x1000/uL (130-400); RED BLOOD CELL COUNT 2.84 mill/uL (4.7-6.1); RED CELL DISTRIBUTION WIDTH 14.7 % (11.6-14.6)
[2018-08-16 07:12] LABS: PHOSPHORUS 7.8 mg/dL (2.5-4.9)
[2018-08-16] MEDS ORDERED: ALBUMIN HUMAN 12.5G/250ML (5%) IV SCH (07:15)
[2018-08-16] MEDS ORDERED: AMIODARONE HCL 150 MG in DEXT 5% WATER 100 ML IV SCH (07:15)
[2018-08-16 07:36] LABS: INR 1.1; PARTIAL THROMBOPLASTIN TIME 40.4 sec (23.4-31.0); PROTHROMBIN TIME 11.4 sec (9.1-11.1)
[2018-08-16] MEDS ORDERED: LORAZEPAM 2MG/ML CPJ IV SCH (07:45)
[2018-08-16 07:53] LABS: BG BASE EXCESS -1.8 mmol/L (-2.0-2.0); BG DEOXYHEMOGLOBIN 3.9 % (0.0-5.0); BG FRACTION INSPIRED OXYGEN 70; BG HCO3 ACT 22.1 mmol/L (22.0-26.0); BG OXYGEN SATURATION 96.1 % (92.0-98.5); BG OXYHEMOGLOBIN 96.1 % (94.0-97.0); BG PCO2 33.9 mmHg (35.0-45.0); BG PH 7.433 (7.350-7.450); BG PO2 93.3 mmHg (75.0-100.0); BG SAMPLE SITE A-LINE; BG TIDAL VOLUME(mL) 600 mL; BG TOTAL HEMOGLOBIN 8.5 g/dL (12.0-18.0); BG VENT MODE VENT - A/C; BG VENT RATE 18 set
[2018-08-16] MEDS: IPRATROPIUM/ALBUTEROL 0.5-3(2.5)MG/3ML NEB HHN SCH ×4 (08:14→23:39)
[2018-08-16] MEDS: DOCUSATE SODIUM 100MG CAPSULE PO SCH ×2 (08:26→17:58)
[2018-08-16] MEDS: BACITRACIN 15GM TUBE TOP SCH ×2 (08:41→17:00)
[2018-08-16] MEDS ORDERED: EPINEPHRINE 4 MG in SODIUM CHLORIDE 0.9% 246 ML IV PRN (08:45)
[2018-08-16] MEDS ORDERED: NOREPINEPHRINE 8 MG in DEXT 5% WATER 242 ML IV PRN (08:45)
[2018-08-16] MEDS ORDERED: DEXTROSE 50% WATER 50ML SYRINGE IV PRN ×2 (09:00)
[2018-08-16] MEDS ORDERED: BLOOD SUGAR DIAGNOSTIC STRIP TEST SCH (09:00)
[2018-08-16] MEDS: INSULIN REGULAR (DRIP) 100 UNITS in SODIUM CHLORIDE 0.9% 99 ML IV SCH (09:13)
[2018-08-16 10:03] LABS: PLATELET ESTIMATE SLIGHTLY DECREASED
[2018-08-16] MEDS: FAMOTIDINE 20MG/2ML VIAL IV SCH (10:50)
[2018-08-16 11:37] LABS: BG BASE EXCESS 0.9 mmol/L (-2.0-2.0); BG CARBOXYHEMOGLOBIN 0.3 % (0.5-1.5); BG DEOXYHEMOGLOBIN 1.9 % (0.0-5.0); BG HCO3 ACT 23.7 mmol/L (22.0-26.0); BG METHEMOGLOBIN 0.1 % (0.0-1.5); BG OXYGEN SATURATION 98.1 % (92.0-98.5); BG OXYHEMOGLOBIN 97.7 % (94.0-97.0); BG PCO2 31.9 mmHg (35.0-45.0); BG PH 7.489 (7.350-7.450); BG PO2 132.8 mmHg (75.0-100.0); BG SAMPLE SITE A-LINE; BG TIDAL VOLUME(mL) 600 mL; BG TOTAL HEMOGLOBIN 11.8 g/dL (12.0-18.0); BG VENT MODE VENT - A/C; BG VENT RATE 18 set
[2018-08-16 11:57] LABS: HEMATOCRIT. 33.2 % (42.0-52.0); HEMOGLOBIN. 11.6 g/dL (14.0-18.0); MEAN CORPUSCULAR HEMOGLOBIN 30.3 pg (28.0-32.0); MEAN CORPUSCULAR VOLUME 87.1 fL (80.0-94.0); MEAN PLATELET VOLUME 9.1 fl (7.4-10.4); PLATELET 112 x1000/uL (130-400); RED BLOOD CELL COUNT 3.81 mill/uL (4.7-6.1); RED CELL DISTRIBUTION WIDTH 14.8 % (11.6-14.6)
[2018-08-16 12:57] LABS: INR 1.3; PROTHROMBIN TIME 13.5 sec (9.1-11.1)
[2018-08-16 12:59] LABS: CHLORIDE 104 mEq/L (98-107)
[2018-08-16 13:05] LABS: PHOSPHORUS 4.4 mg/dL (2.5-4.9)
[2018-08-16] MEDS: DEXT 5%/0.45% NACL 1000ML 1,000 ML IV SCH (13:44)
[2018-08-16 13:53] LABS: PLATELET ESTIMATE DECREAS
[2018-08-16 14:03] LABS: PLATELET ESTIMATE DECREASED
[2018-08-16 14:07] LABS: BG BASE EXCESS 1.3 mmol/L (-2.0-2.0); BG CARBOXYHEMOGLOBIN 0.3 % (0.5-1.5); BG DEOXYHEMOGLOBIN 4.2 % (0.0-5.0); BG HCO3 ACT 23.9 mmol/L (22.0-26.0); BG METHEMOGLOBIN 0.3 % (0.0-1.5); BG OXYGEN SATURATION 95.8 % (92.0-98.5); BG OXYHEMOGLOBIN 95.2 % (94.0-97.0); BG PH 7.504 (7.350-7.450); BG PO2 82.9 mmHg (75.0-100.0); BG SAMPLE SITE A-LINE; BG TIDAL VOLUME(mL) 600 mL; BG TOTAL HEMOGLOBIN 11.6 g/dL (12.0-18.0); BG VENT MODE VENT - A/C; BG VENT RATE 18 set
[2018-08-16 14:07] LABS: AMYLASE 3278 IU/L (25-115)
[2018-08-16] MEDS ORDERED: PHENYTOIN SODIUM 1,000 MG in SODIUM CHLORIDE 0.9% 100 ML IV NR (17:00)
[2018-08-16 17:38] LABS: BG BASE EXCESS 1.8 mmol/L (-2.0-2.0); BG CARBOXYHEMOGLOBIN 0.3 % (0.5-1.5); BG DEOXYHEMOGLOBIN 3.1 % (0.0-5.0); BG FRACTION INSPIRED OXYGEN 55; BG HCO3 ACT 23.4 mmol/L (22.0-26.0); BG METHEMOGLOBIN 0.1 % (0.0-1.5); BG OXYGEN SATURATION 96.9 % (92.0-98.5); BG OXYHEMOGLOBIN 96.5 % (94.0-97.0); BG PCO2 27.3 mmHg (35.0-45.0); BG PH 7.551 (7.350-7.450); BG PO2 94.1 mmHg (75.0-100.0); BG SAMPLE SITE A-LINE; BG TIDAL VOLUME(mL) 600 mL; BG TOTAL HEMOGLOBIN 10.9 g/dL (12.0-18.0); BG VENT MODE VENT - A/C; BG VENT RATE 14 set
[2018-08-16 17:47] LABS: HEMATOCRIT. 31.1 % (42.0-52.0); HEMOGLOBIN. 10.7 g/dL (14.0-18.0); MEAN CORPUSCULAR VOLUME 87.7 fL (80.0-94.0); MEAN PLATELET VOLUME 9.3 fl (7.4-10.4); PLATELET 88 x1000/uL (130-400); RED BLOOD CELL COUNT 3.55 mill/uL (4.7-6.1)
[2018-08-16 17:55] LABS: INR 1.6; PARTIAL THROMBOPLASTIN TIME 29.8 sec (23.4-31.0); PROTHROMBIN TIME 15.8 sec (9.1-11.1)
[2018-08-16 17:58] LABS: PHOSPHORUS 4.7 mg/dL (2.5-4.9)
[2018-08-16] MEDS: LEVETIRACETAM 500 MG in SODIUM CHLORIDE 0.9% 100 ML IV SCH (17:58)
[2018-08-16 18:08] LABS: PLATELET ESTIMATE DECREASED
[2018-08-16] MEDS ORDERED: LORAZEPAM 2MG/ML CPJ IV PRN (21:45)
[2018-08-16 22:06] LABS: BG BASE EXCESS 2.2 mmol/L (-2.0-2.0); BG CARBOXYHEMOGLOBIN 0.5 % (0.5-1.5); BG DEOXYHEMOGLOBIN 4.1 % (0.0-5.0); BG FRACTION INSPIRED OXYGEN 50; BG HCO3 ACT 25.6 mmol/L (22.0-26.0); BG OXYGEN SATURATION 95.9 % (92.0-98.5); BG OXYHEMOGLOBIN 95.4 % (94.0-97.0); BG PCO2 35.5 mmHg (35.0-45.0); BG PH 7.476 (7.350-7.450); BG PO2 83.9 mmHg (75.0-100.0); BG SAMPLE SITE A-LINE; BG TIDAL VOLUME(mL) 600 mL; BG TOTAL HEMOGLOBIN 11.3 g/dL (12.0-18.0); BG VENT MODE VENT - A/C; BG VENT RATE 14 set
[2018-08-17] VITALS (139 sets, daily range): BP systolic 0–200; BP diastolic 0–122
[2018-08-17] MEDS: INSULIN REGULAR (DRIP) 100 UNITS in SODIUM CHLORIDE 0.9% 100 ML IV SCH ×2 (00:26→10:31)
[2018-08-17] MEDS: BLOOD SUGAR DIAGNOSTIC STRIP TEST SCH ×24 (00:45→23:45)
[2018-08-17] MEDS: MAGNESIUM HYDROXIDE 400MG/5ML 30ML UDC PO SCH ×6 (03:00→21:14)
[2018-08-17] MEDS: IPRATROPIUM/ALBUTEROL 0.5-3(2.5)MG/3ML NEB HHN SCH ×5 (04:01→23:47)
[2018-08-17 05:15] LABS: HEMATOCRIT. 32.2 % (42.0-52.0); MEAN CORPUSCULAR HEMOGLOBIN 30.1 pg (28.0-32.0); MEAN CORPUSCULAR VOLUME 88.6 fL (80.0-94.0); MEAN PLATELET VOLUME 10.4 fl (7.4-10.4); PLATELET 95 x1000/uL (130-400); RED BLOOD CELL COUNT 3.63 mill/uL (4.7-6.1); RED CELL DISTRIBUTION WIDTH 14.9 % (11.6-14.6)
[2018-08-17 05:26] LABS: CHLORIDE 104 mEq/L (98-107)
[2018-08-17 05:37] LABS: PHOSPHORUS 6.7 mg/dL (2.5-4.9)
[2018-08-17 05:45] LABS: BG BASE EXCESS 2.7 mmol/L (-2.0-2.0); BG CARBOXYHEMOGLOBIN 0.3 % (0.5-1.5); BG DEOXYHEMOGLOBIN 3.2 % (0.0-5.0); BG FRACTION INSPIRED OXYGEN 50; BG METHEMOGLOBIN 0.3 % (0.0-1.5); BG OXYGEN SATURATION 96.8 % (92.0-98.5); BG OXYHEMOGLOBIN 96.2 % (94.0-97.0); BG PCO2 35.6 mmHg (35.0-45.0); BG PH 7.482 (7.350-7.450); BG PIP 25 cmH2O; BG PO2 95.7 mmHg (75.0-100.0); BG SAMPLE SITE A-LINE; BG TIDAL VOLUME(mL) 600 mL; BG TOTAL HEMOGLOBIN 11.4 g/dL (12.0-18.0); BG VENT MODE VENT - A/C; BG VENT RATE 14 set
[2018-08-17] MEDS: POLYVINYL ALCOHOL OPHTH DROPS 15ML BOTHEYE SCH ×3 (05:55→18:03)
[2018-08-17] MEDS: BACITRACIN 15GM TUBE TOP SCH ×2 (09:00→16:16)
[2018-08-17] MEDS: LEVETIRACETAM 500 MG in SODIUM CHLORIDE 0.9% 100 ML IV SCH (09:13)
[2018-08-17] MEDS: DOCUSATE SODIUM 100MG CAPSULE PO SCH ×2 (09:14→16:16)
[2018-08-17] MEDS: DEXT 5%/0.45% NACL 1000ML 1,000 ML IV SCH ×2 (09:14→16:18)
[2018-08-17] MEDS: FAMOTIDINE 20MG/2ML VIAL IV SCH (09:14)
[2018-08-17 09:27] LABS: INR 1.7; PARTIAL THROMBOPLASTIN TIME 27.7 sec (23.4-31.0); PROTHROMBIN TIME 16.6 sec (9.1-11.1)
[2018-08-17 10:22] LABS: AMYLASE 3181 IU/L (25-115)
[2018-08-17 10:33] LABS: PLATELET ESTIMATE DECREASED
[2018-08-17] MEDS ORDERED: METOCLOPRAMIDE HCL 10MG/2ML VIAL IV SCH ×2 (12:00→18:00)
[2018-08-17] MEDS: METOCLOPRAMIDE HCL 10MG/2ML VIAL IV SCH ×2 (13:29→18:02)
[2018-08-17] MEDS ORDERED: VANCOMYCIN 1 G PREMIX 200 ML IV SCH (16:00)
[2018-08-17] MEDS: CEFEPIME 1,000 MG in DEXTROSE 5% WATER 50 ML IV SCH (16:16)
[2018-08-17] MEDS: PHENYTOIN SODIUM 100MG/2ML VIAL IV SCH (21:14)
[2018-08-17] MEDS: ATORVASTATIN CALCIUM 40MG TABLET PO SCH (21:14)
[2018-08-17] MEDS: LEVETIRACETAM 1,000 MG in SODIUM CHLORIDE 0.9% 100 ML IV SCH (21:14)
[2018-08-18] VITALS (81 sets, daily range): BP systolic 120–230; BP diastolic 47–161
[2018-08-18] MEDS: BLOOD SUGAR DIAGNOSTIC STRIP TEST SCH ×24 (00:45→23:45)
[2018-08-18] MEDS: MAGNESIUM HYDROXIDE 400MG/5ML 30ML UDC PO SCH ×3 (02:00→11:00)
[2018-08-18] MEDS: METOCLOPRAMIDE HCL 10MG/2ML VIAL IV SCH ×4 (02:01→17:58)
[2018-08-18] MEDS: POLYVINYL ALCOHOL OPHTH DROPS 15ML BOTHEYE SCH ×4 (02:01→17:58)
[2018-08-18] MEDS: IPRATROPIUM/ALBUTEROL 0.5-3(2.5)MG/3ML NEB HHN SCH ×5 (04:16→21:01)
[2018-08-18] MEDS: HYDRALAZINE 20MG/ML VIAL IV PRN ×2 (05:10→11:01)
[2018-08-18 05:51] LABS: CHLORIDE 100 mEq/L (98-107)
[2018-08-18 05:54] LABS: HEMATOCRIT. 32.8 % (42.0-52.0); MEAN CORPUSCULAR VOLUME 89.3 fL (80.0-94.0); MEAN PLATELET VOLUME 10.5 fl (7.4-10.4); PLATELET 101 x1000/uL (130-400); RED BLOOD CELL COUNT 3.67 mill/uL (4.7-6.1); RED CELL DISTRIBUTION WIDTH 15.2 % (11.6-14.6)
[2018-08-18 06:15] LABS: PHOSPHORUS 8.6 mg/dL (2.5-4.9)
[2018-08-18 06:15] LABS: BG BASE EXCESS 2.4 mmol/L (-2.0-2.0); BG DEOXYHEMOGLOBIN 4.5 % (0.0-5.0); BG FRACTION INSPIRED OXYGEN 30; BG HCO3 ACT 25.8 mmol/L (22.0-26.0); BG OXYGEN SATURATION 95.5 % (92.0-98.5); BG OXYHEMOGLOBIN 95.5 % (94.0-97.0); BG PCO2 35.8 mmHg (35.0-45.0); BG PH 7.476 (7.350-7.450); BG PIP 24 cmH2O; BG PO2 82.8 mmHg (75.0-100.0); BG SAMPLE SITE A-LINE; BG TIDAL VOLUME(mL) 600 mL; BG TOTAL HEMOGLOBIN 12.1 g/dL (12.0-18.0); BG VENT MODE VENT - A/C; BG VENT RATE 14 set
[2018-08-18 06:21] LABS: INR 1.4; PARTIAL THROMBOPLASTIN TIME 25.9 sec (23.4-31.0); PROTHROMBIN TIME 13.7 sec (9.1-11.1)
[2018-08-18] MEDS ORDERED: LIDOCAINE HCL 1% 20ML VIAL (Pyxis) INJ ONE (07:15)
[2018-08-18 07:47] LABS: AMYLASE 1957 IU/L (25-115)
[2018-08-18] MEDS: FAMOTIDINE 20MG/2ML VIAL IV SCH (09:19)
[2018-08-18] MEDS: PHENYTOIN SODIUM 100MG/2ML VIAL IV SCH ×2 (09:20→22:16)
[2018-08-18] MEDS: CEFEPIME 1,000 MG in DEXTROSE 5% WATER 50 ML IV SCH (09:20)
[2018-08-18] MEDS: LEVETIRACETAM 1,000 MG in SODIUM CHLORIDE 0.9% 100 ML IV SCH ×2 (09:21→21:26)
[2018-08-18] MEDS: CLONIDINE 0.1MG TABLET PO PRN (09:21)
[2018-08-18] MEDS: DOCUSATE SODIUM 100MG CAPSULE PO SCH (09:21)
[2018-08-18] MEDS: DEXT 5%/0.45% NACL 1000ML 1,000 ML IV SCH (09:28)
[2018-08-18 10:28] LABS: PLATELET ESTIMATE DECREAS
[2018-08-18] MEDS: BACITRACIN 15GM TUBE TOP SCH ×2 (11:07→17:14)
[2018-08-18] MEDS ORDERED: LACTULOSE 20G/30ML UDC PO NR (11:30)
[2018-08-18] MEDS ORDERED: NA PHOS,M-B/NA PHOS,DI-BA ENEMA 118ML PR SCH (11:45)
[2018-08-18] MEDS: LANTHANUM CARBONATE 500MG CHEW TABLET PO SCH ×2 (14:32→17:58)
[2018-08-18] MEDS: INSULIN REGULAR (DRIP) 100 UNITS in SODIUM CHLORIDE 0.9% 100 ML IV SCH (14:41)
[2018-08-18] MEDS ORDERED: DOCUSATE SODIUM 100MG CAPSULE NG SCH (17:00)
[2018-08-18] MEDS: CARVEDILOL 3.125 MG TABLET PO SCH ×2 (17:13→21:36)
[2018-08-18] MEDS: LACTULOSE 20G/30ML UDC PO SCH ×2 (17:15→21:36)
[2018-08-18] MEDS: NICARDIPINE 50 MG in SODIUM CHLORIDE 0.9% 230 ML IV PRN (17:20)
[2018-08-18] MEDS: DOCUSATE SODIUM SUGAR FREE 100MG/10ML UDC NG SCH (17:58)
[2018-08-18] MEDS ORDERED: NA PHOS,M-B/NA PHOS,DI-BA ENEMA 118ML PR NR (19:47)
[2018-08-18] MEDS: ATORVASTATIN CALCIUM 40MG TABLET PO SCH (21:36)
[2018-08-19] VITALS (130 sets, daily range): BP systolic 63–192; BP diastolic 49–84
[2018-08-19] MEDS: POLYVINYL ALCOHOL OPHTH DROPS 15ML BOTHEYE SCH ×5 (00:08→23:26)
[2018-08-19] MEDS: METOCLOPRAMIDE HCL 10MG/2ML VIAL IV SCH ×5 (00:08→23:29)
[2018-08-19] MEDS: LACTULOSE 20G/30ML UDC PO SCH ×4 (00:15→12:21)
[2018-08-19] MEDS: IPRATROPIUM/ALBUTEROL 0.5-3(2.5)MG/3ML NEB HHN SCH ×6 (00:44→21:06)
[2018-08-19] MEDS: BLOOD SUGAR DIAGNOSTIC STRIP TEST SCH ×24 (00:45→23:02)
[2018-08-19] MEDS: BACITRACIN 15GM TUBE TOP SCH ×2 (05:04→16:54)
[2018-08-19 05:49] LABS: HEMATOCRIT. 33.4 % (42.0-52.0); HEMOGLOBIN. 11.2 g/dL (14.0-18.0); MEAN CORPUSCULAR HEMOGLOBIN 30.1 pg (28.0-32.0); MEAN CORPUSCULAR VOLUME 90.4 fL (80.0-94.0); MEAN PLATELET VOLUME 10.2 fl (7.4-10.4); PLATELET 90 x1000/uL (130-400); RED CELL DISTRIBUTION WIDTH 15.4 % (11.6-14.6)
[2018-08-19 06:57] LABS: PHOSPHORUS 9.7 mg/dL (2.5-4.9)
[2018-08-19] MEDS: DEXT 5%/0.45% NACL 1000ML 1,000 ML IV SCH ×2 (08:08→22:38)
[2018-08-19] MEDS: FAMOTIDINE 20MG/2ML VIAL IV SCH (09:14)
[2018-08-19] MEDS: LANTHANUM CARBONATE 500MG CHEW TABLET PO SCH ×3 (09:15→16:53)
[2018-08-19] MEDS: CARVEDILOL 3.125 MG TABLET PO SCH ×2 (09:15→20:33)
[2018-08-19] MEDS: DOCUSATE SODIUM SUGAR FREE 100MG/10ML UDC NG SCH ×2 (09:15→16:53)
[2018-08-19] MEDS: CEFEPIME 1,000 MG in DEXTROSE 5% WATER 50 ML IV SCH (09:15)
[2018-08-19] MEDS: LEVETIRACETAM 1,000 MG in SODIUM CHLORIDE 0.9% 100 ML IV SCH ×2 (09:15→20:32)
[2018-08-19] MEDS: PHENYTOIN SODIUM 100MG/2ML VIAL IV SCH ×2 (09:16→20:32)
[2018-08-19 09:37] LABS: BG BASE EXCESS -0.9 mmol/L (-2.0-2.0); BG CARBOXYHEMOGLOBIN 0.3 % (0.5-1.5); BG DEOXYHEMOGLOBIN 2.4 % (0.0-5.0); BG FRACTION INSPIRED OXYGEN 30; BG HCO3 ACT 22.1 mmol/L (22.0-26.0); BG METHEMOGLOBIN 0.3 % (0.0-1.5); BG OXYGEN SATURATION 97.6 % (92.0-98.5); BG PCO2 31.1 mmHg (35.0-45.0); BG PO2 113.3 mmHg (75.0-100.0); BG PRESSURE SUPPORT 10; BG SAMPLE SITE A-LINE; BG TIDAL VOLUME(mL) 600 mL; BG VENT MODE VENT - SIMV; BG VENT RATE 6 set
[2018-08-19] MEDS: NICARDIPINE 50 MG in SODIUM CHLORIDE 0.9% 230 ML IV PRN (16:14)
[2018-08-19 16:52] LABS: PLATELET ESTIMATE DECREASED
[2018-08-19] MEDS: ASPIRIN 81MG TABLET PO SCH (16:53)
[2018-08-19] MEDS: ATORVASTATIN CALCIUM 40MG TABLET PO SCH (20:33)
[2018-08-19] MEDS: INSULIN REGULAR (DRIP) 100 UNITS in SODIUM CHLORIDE 0.9% 100 ML IV SCH (20:35)
[2018-08-20] VITALS (69 sets, daily range): BP systolic 53–175; BP diastolic 25–80
[2018-08-20] MEDS: IPRATROPIUM/ALBUTEROL 0.5-3(2.5)MG/3ML NEB HHN SCH ×6 (00:35→20:31)
[2018-08-20] MEDS: BLOOD SUGAR DIAGNOSTIC STRIP TEST SCH ×24 (00:45→23:21)
[2018-08-20] MEDS: METOCLOPRAMIDE HCL 10MG/2ML VIAL IV SCH ×3 (05:30→19:08)
[2018-08-20] MEDS: POLYVINYL ALCOHOL OPHTH DROPS 15ML BOTHEYE SCH ×3 (05:30→19:04)
[2018-08-20 05:46] LABS: HEMATOCRIT. 30.1 % (42.0-52.0); MEAN CORPUSCULAR HEMOGLOBIN 30.3 pg (28.0-32.0); MEAN CORPUSCULAR VOLUME 91.5 fL (80.0-94.0); MEAN PLATELET VOLUME 10.3 fl (7.4-10.4); PLATELET 88 x1000/uL (130-400); RED BLOOD CELL COUNT 3.29 mill/uL (4.7-6.1); RED CELL DISTRIBUTION WIDTH 15.1 % (11.6-14.6)
[2018-08-20 05:54] LABS: CHLORIDE 106 mEq/L (98-107)
[2018-08-20 05:59] LABS: AMYLASE 450 IU/L (25-115)
[2018-08-20 07:09] LABS: PLATELET ESTIMATE DECREASED
[2018-08-20 09:02] LABS: BG BASE EXCESS -2.4 mmol/L (-2.0-2.0); BG CARBOXYHEMOGLOBIN 0.1 % (0.5-1.5); BG DEOXYHEMOGLOBIN 3.4 % (0.0-5.0); BG FRACTION INSPIRED OXYGEN 30; BG HCO3 ACT 21.8 mmol/L (22.0-26.0); BG METHEMOGLOBIN 0.3 % (0.0-1.5); BG OXYGEN SATURATION 96.6 % (92.0-98.5); BG OXYHEMOGLOBIN 96.2 % (94.0-97.0); BG PCO2 35.5 mmHg (35.0-45.0); BG PH 7.407 (7.350-7.450); BG PO2 98.3 mmHg (75.0-100.0); BG PRESSURE SUPPORT 10; BG SAMPLE SITE A-LINE; BG TIDAL VOLUME(mL) 600 mL; BG TOTAL HEMOGLOBIN 10.3 g/dL (12.0-18.0); BG VENT MODE VENT - SIMV; BG VENT RATE 6 set
[2018-08-20] MEDS: DOCUSATE SODIUM SUGAR FREE 100MG/10ML UDC NG SCH ×2 (12:29→16:39)
[2018-08-20] MEDS: PHENYTOIN SODIUM 100MG/2ML VIAL IV SCH ×2 (12:30→20:34)
[2018-08-20] MEDS: CARVEDILOL 3.125 MG TABLET PO SCH ×2 (12:31→20:34)
[2018-08-20] MEDS: ASPIRIN 81MG TABLET PO SCH (12:31)
[2018-08-20] MEDS: FAMOTIDINE 20MG/2ML VIAL IV SCH (12:31)
[2018-08-20] MEDS: LANTHANUM CARBONATE 500MG CHEW TABLET PO SCH ×3 (12:32→19:07)
[2018-08-20] MEDS: LEVETIRACETAM 1,000 MG in SODIUM CHLORIDE 0.9% 100 ML IV SCH ×2 (12:32→21:20)
[2018-08-20] MEDS: CEFEPIME 1,000 MG in DEXTROSE 5% WATER 50 ML IV SCH (12:32)
[2018-08-20] MEDS: BACITRACIN 15GM TUBE TOP SCH ×2 (12:35→16:40)
[2018-08-20] MEDS: NICARDIPINE 50 MG in SODIUM CHLORIDE 0.9% 230 ML IV PRN (19:05)
[2018-08-20] MEDS: ATORVASTATIN CALCIUM 40MG TABLET PO SCH (20:34)
[2018-08-21] VITALS (62 sets, daily range): BP systolic 117–182; BP diastolic 41–72
[2018-08-21] MEDS: IPRATROPIUM/ALBUTEROL 0.5-3(2.5)MG/3ML NEB HHN SCH ×7 (00:04→23:55)
[2018-08-21] MEDS: BLOOD SUGAR DIAGNOSTIC STRIP TEST SCH ×19 (02:25→20:45)
[2018-08-21 06:16] LABS: HEMATOCRIT. 27.3 % (42.0-52.0); HEMOGLOBIN. 9.2 g/dL (14.0-18.0); MEAN CORPUSCULAR HEMOGLOBIN 30.7 pg (28.0-32.0); MEAN CORPUSCULAR VOLUME 91.4 fL (80.0-94.0); MEAN PLATELET VOLUME 10.4 fl (7.4-10.4); PLATELET 93 x1000/uL (130-400); RED BLOOD CELL COUNT 2.98 mill/uL (4.7-6.1); RED CELL DISTRIBUTION WIDTH 14.9 % (11.6-14.6)
[2018-08-21] MEDS: METOCLOPRAMIDE HCL 10MG/2ML VIAL IV SCH ×5 (06:18→23:58)
[2018-08-21] MEDS: POLYVINYL ALCOHOL OPHTH DROPS 15ML BOTHEYE SCH ×5 (06:19→23:59)
[2018-08-21] MEDS: NYSTATIN 100,000 UNITS/ML 5ML UDC SSW SCH ×5 (06:19→23:58)
[2018-08-21 06:26] LABS: CHLORIDE 105 mEq/L (98-107)
[2018-08-21] MEDS: DEXT 5%/0.45% NACL 1000ML 1,000 ML IV SCH (06:52)
[2018-08-21 07:45] LABS: BG BASE EXCESS 3.6 mmol/L (-2.0-2.0); BG CARBOXYHEMOGLOBIN 0.3 % (0.5-1.5); BG FRACTION INSPIRED OXYGEN 30; BG HCO3 ACT 27.4 mmol/L (22.0-26.0); BG METHEMOGLOBIN 0.6 % (0.0-1.5); BG OXYHEMOGLOBIN 96.1 % (94.0-97.0); BG PCO2 38.2 mmHg (35.0-45.0); BG PH 7.473 (7.350-7.450); BG PO2 104.5 mmHg (75.0-100.0); BG PRESSURE SUPPORT 10; BG SAMPLE SITE A-LINE; BG TIDAL VOLUME(mL) 600 mL; BG TOTAL HEMOGLOBIN 9.9 g/dL (12.0-18.0); BG VENT MODE VENT - SIMV; BG VENT RATE 6 set
[2018-08-21] MEDS: PHENYTOIN SODIUM 100MG/2ML VIAL IV SCH ×2 (08:06→21:01)
[2018-08-21] MEDS: FAMOTIDINE 20MG/2ML VIAL IV SCH (08:06)
[2018-08-21] MEDS: DOCUSATE SODIUM SUGAR FREE 100MG/10ML UDC NG SCH ×2 (08:06→16:35)
[2018-08-21] MEDS: CARVEDILOL 3.125 MG TABLET PO SCH ×2 (08:07→21:01)
[2018-08-21] MEDS: LANTHANUM CARBONATE 500MG CHEW TABLET PO SCH ×3 (08:07→17:35)
[2018-08-21] MEDS: ASPIRIN 81MG TABLET PO SCH (08:07)
[2018-08-21] MEDS: LEVETIRACETAM 1,000 MG in SODIUM CHLORIDE 0.9% 100 ML IV SCH ×2 (08:07→21:12)
[2018-08-21] MEDS: CEFEPIME 1,000 MG in DEXTROSE 5% WATER 50 ML IV SCH (08:10)
[2018-08-21] MEDS: BACITRACIN 15GM TUBE TOP SCH ×2 (08:53→16:35)
[2018-08-21] MEDS ORDERED: VANCOMYCIN 750 MG PREMIX 150 ML IV SCH (12:30)
[2018-08-21] MEDS ORDERED: DEXTROSE 50% WATER 50ML SYRINGE IV PRN (15:00)
[2018-08-21] MEDS: INSULIN GLARGINE UD 100 UNITS/ML SYR SUBCUT SCH (16:25)
[2018-08-21 16:26] LABS: PLATELET ESTIMATE DECREASED
[2018-08-21] MEDS: INSULIN LISPRO 100 UNITS/ML SUBCUT SCH (18:00)
[2018-08-21] MEDS: ATORVASTATIN CALCIUM 40MG TABLET PO SCH (21:01)
[2018-08-22] VITALS (97 sets, daily range): BP systolic 48–195; BP diastolic 41–152
[2018-08-22] MEDS: INSULIN LISPRO 100 UNITS/ML SUBCUT SCH ×5 (00:03→23:36)
[2018-08-22] MEDS: HYDRALAZINE 20MG/ML VIAL IV PRN ×3 (00:04→17:53)
[2018-08-22] MEDS: BLOOD SUGAR DIAGNOSTIC STRIP TEST SCH ×5 (00:04→23:35)
[2018-08-22] MEDS: IPRATROPIUM/ALBUTEROL 0.5-3(2.5)MG/3ML NEB HHN SCH ×5 (03:25→21:05)
[2018-08-22] MEDS: METOCLOPRAMIDE HCL 10MG/2ML VIAL IV SCH ×3 (05:38→23:35)
[2018-08-22] MEDS: NYSTATIN 100,000 UNITS/ML 5ML UDC SSW SCH ×4 (05:38→23:36)
[2018-08-22] MEDS: POLYVINYL ALCOHOL OPHTH DROPS 15ML BOTHEYE SCH ×4 (05:38→23:37)
[2018-08-22 05:57] LABS: HEMATOCRIT. 26.4 % (42.0-52.0); HEMOGLOBIN. 8.7 g/dL (14.0-18.0); MEAN CORPUSCULAR HEMOGLOBIN 30.6 pg (28.0-32.0); MEAN CORPUSCULAR VOLUME 92.6 fL (80.0-94.0); MEAN PLATELET VOLUME 10.7 fl (7.4-10.4); PLATELET 106 x1000/uL (130-400); RED BLOOD CELL COUNT 2.85 mill/uL (4.7-6.1); RED CELL DISTRIBUTION WIDTH 15.1 % (11.6-14.6)
[2018-08-22 06:07] LABS: CHLORIDE 103 mEq/L (98-107)
[2018-08-22] MEDS: DEXT 5%/0.45% NACL 1000ML 1,000 ML IV SCH (08:14)
[2018-08-22] MEDS: ASPIRIN 81MG TABLET PO SCH (08:15)
[2018-08-22] MEDS: FAMOTIDINE 20MG/2ML VIAL IV SCH (08:15)
[2018-08-22] MEDS: CARVEDILOL 3.125 MG TABLET PO SCH ×2 (08:15→20:05)
[2018-08-22] MEDS: DOCUSATE SODIUM SUGAR FREE 100MG/10ML UDC NG SCH ×2 (08:17→17:52)
[2018-08-22] MEDS: PHENYTOIN SODIUM 100MG/2ML VIAL IV SCH ×2 (08:17→20:05)
[2018-08-22 08:31] LABS: BG BASE EXCESS -2.8 mmol/L (-2.0-2.0); BG CARBOXYHEMOGLOBIN 0.3 % (0.5-1.5); BG DEOXYHEMOGLOBIN 3.1 % (0.0-5.0); BG FRACTION INSPIRED OXYGEN 30; BG HCO3 ACT 21.1 mmol/L (22.0-26.0); BG METHEMOGLOBIN 0.8 % (0.0-1.5); BG OXYGEN SATURATION 96.9 % (92.0-98.5); BG OXYHEMOGLOBIN 95.8 % (94.0-97.0); BG PH 7.423 (7.350-7.450); BG PRESSURE SUPPORT 10; BG SAMPLE SITE A-LINE; BG TIDAL VOLUME(mL) 600 mL; BG TOTAL HEMOGLOBIN 9.9 g/dL (12.0-18.0); BG VENT MODE VENT - SIMV; BG VENT RATE 6 set
[2018-08-22] MEDS: LEVETIRACETAM 1,000 MG in SODIUM CHLORIDE 0.9% 100 ML IV SCH ×2 (08:38→20:52)
[2018-08-22] MEDS: LANTHANUM CARBONATE 500MG CHEW TABLET PO SCH ×3 (08:40→17:26)
[2018-08-22 09:09] LABS: PLATELET ESTIMATE SLIGHTLY DECREASED
[2018-08-22] MEDS: INSULIN GLARGINE UD 100 UNITS/ML SYR SUBCUT SCH (09:51)
[2018-08-22] MEDS: CEFEPIME 1,000 MG in DEXTROSE 5% WATER 50 ML IV SCH (09:52)
[2018-08-22] MEDS: BACITRACIN 15GM TUBE TOP SCH ×2 (09:52→20:06)
[2018-08-22] MEDS ORDERED: LORAZEPAM 2MG/ML CPJ IV PRN (10:45)
[2018-08-22] MEDS: NICARDIPINE 50 MG in SODIUM CHLORIDE 0.9% 230 ML IV PRN (13:09)
[2018-08-22] MEDS: LACTULOSE 20G/30ML UDC NG SCH (20:52)
[2018-08-23] VITALS (44 sets, daily range): BP systolic 125–190; BP diastolic 37–79
[2018-08-23] MEDS: HYDRALAZINE 20MG/ML VIAL IV PRN ×3 (00:16→18:14)
[2018-08-23] MEDS: IPRATROPIUM/ALBUTEROL 0.5-3(2.5)MG/3ML NEB HHN SCH ×6 (00:57→20:36)
[2018-08-23 05:19] LABS: HEMATOCRIT. 26.8 % (42.0-52.0); MEAN CORPUSCULAR HEMOGLOBIN 30.7 pg (28.0-32.0); MEAN CORPUSCULAR VOLUME 91.8 fL (80.0-94.0); MEAN PLATELET VOLUME 10.1 fl (7.4-10.4); PLATELET 137 x1000/uL (130-400); RED BLOOD CELL COUNT 2.92 mill/uL (4.7-6.1); RED CELL DISTRIBUTION WIDTH 14.7 % (11.6-14.6)
[2018-08-23] MEDS: NICARDIPINE 50 MG in SODIUM CHLORIDE 0.9% 230 ML IV PRN (05:26)
[2018-08-23] MEDS: BLOOD SUGAR DIAGNOSTIC STRIP TEST SCH ×3 (05:26→17:56)
[2018-08-23] MEDS: POLYVINYL ALCOHOL OPHTH DROPS 15ML BOTHEYE SCH ×3 (05:26→17:55)
[2018-08-23] MEDS: NYSTATIN 100,000 UNITS/ML 5ML UDC SSW SCH ×3 (05:26→17:56)
[2018-08-23] MEDS: METOCLOPRAMIDE HCL 10MG/2ML VIAL IV SCH ×3 (05:26→17:55)
[2018-08-23] MEDS: INSULIN LISPRO 100 UNITS/ML SUBCUT SCH ×3 (05:27→18:19)
[2018-08-23 07:09] LABS: PLATELET ESTIMATE NORMAL
[2018-08-23] MEDS: ASPIRIN 81MG TABLET PO SCH (08:12)
[2018-08-23] MEDS: CARVEDILOL 6.25 MG TABLET PO SCH ×2 (08:12→20:25)
[2018-08-23] MEDS: PHENYTOIN SODIUM 100MG/2ML VIAL IV SCH ×2 (08:12→20:24)
[2018-08-23] MEDS: LACTULOSE 20G/30ML UDC NG SCH ×2 (08:13→17:03)
[2018-08-23] MEDS: FAMOTIDINE 20MG/2ML VIAL IV SCH (08:13)
[2018-08-23] MEDS: LANTHANUM CARBONATE 500MG CHEW TABLET PO SCH ×3 (08:13→18:00)
[2018-08-23] MEDS: CEFEPIME 1,000 MG in DEXTROSE 5% WATER 50 ML IV SCH (08:13)
[2018-08-23] MEDS: DEXT 5%/0.45% NACL 1000ML 1,000 ML IV SCH (08:13)
[2018-08-23] MEDS: BACITRACIN 15GM TUBE TOP SCH ×2 (08:15→21:00)
[2018-08-23] MEDS: DOCUSATE SODIUM SUGAR FREE 100MG/10ML UDC NG SCH ×2 (08:15→17:03)
[2018-08-23 08:43] LABS: BG BASE EXCESS -1.3 mmol/L (-2.0-2.0); BG CARBOXYHEMOGLOBIN 0.2 % (0.5-1.5); BG DEOXYHEMOGLOBIN 3.1 % (0.0-5.0); BG FRACTION INSPIRED OXYGEN 30; BG HCO3 ACT 21.9 mmol/L (22.0-26.0); BG METHEMOGLOBIN 0.4 % (0.0-1.5); BG OXYGEN SATURATION 96.9 % (92.0-98.5); BG OXYHEMOGLOBIN 96.3 % (94.0-97.0); BG PCO2 31.2 mmHg (35.0-45.0); BG PH 7.464 (7.350-7.450); BG PO2 95.2 mmHg (75.0-100.0); BG PRESSURE SUPPORT 10; BG SAMPLE SITE A-LINE; BG TIDAL VOLUME(mL) 600 mL; BG TOTAL HEMOGLOBIN 9.8 g/dL (12.0-18.0); BG VENT MODE VENT - SIMV; BG VENT RATE 6 set
[2018-08-23] MEDS: LEVETIRACETAM 1,000 MG in SODIUM CHLORIDE 0.9% 100 ML IV SCH ×2 (09:19→20:24)
[2018-08-23] MEDS: INSULIN GLARGINE UD 100 UNITS/ML SYR SUBCUT SCH (10:02)
[2018-08-23] MEDS ORDERED: VANCOMYCIN 750 MG PREMIX 150 ML IV SCH (15:00)
[2018-08-23 20:39] LABS: HEMATOCRIT. 27.3 % (42.0-52.0); HEMOGLOBIN. 8.9 g/dL (14.0-18.0); MEAN CORPUSCULAR HEMOGLOBIN 30.2 pg (28.0-32.0); MEAN CORPUSCULAR VOLUME 92.3 fL (80.0-94.0); MEAN PLATELET VOLUME 10.2 fl (7.4-10.4); PLATELET 161 x1000/uL (130-400); RED BLOOD CELL COUNT 2.96 mill/uL (4.7-6.1); RED CELL DISTRIBUTION WIDTH 15.1 % (11.6-14.6)
[2018-08-23 21:16] LABS: PLATELET ESTIMATE NORMAL
[2018-08-24] VITALS (28 sets, daily range): BP systolic 127–196; BP diastolic 40–89
[2018-08-24] MEDS: NYSTATIN 100,000 UNITS/ML 5ML UDC SSW SCH ×4 (00:05→18:34)
[2018-08-24] MEDS: METOCLOPRAMIDE HCL 10MG/2ML VIAL IV SCH ×4 (00:05→18:34)
[2018-08-24] MEDS: POLYVINYL ALCOHOL OPHTH DROPS 15ML BOTHEYE SCH ×4 (00:05→18:34)
[2018-08-24] MEDS: INSULIN LISPRO 100 UNITS/ML SUBCUT SCH ×4 (00:07→18:35)
[2018-08-24] MEDS: IPRATROPIUM/ALBUTEROL 0.5-3(2.5)MG/3ML NEB HHN SCH ×6 (00:30→20:47)
[2018-08-24] MEDS: HYDRALAZINE 20MG/ML VIAL IV PRN ×3 (02:01→21:48)
[2018-08-24 04:52] LABS: HEMATOCRIT. 26.3 % (42.0-52.0); HEMOGLOBIN. 8.7 g/dL (14.0-18.0); MEAN CORPUSCULAR HEMOGLOBIN 30.6 pg (28.0-32.0); MEAN CORPUSCULAR VOLUME 92.5 fL (80.0-94.0); PLATELET 159 x1000/uL (130-400); RED BLOOD CELL COUNT 2.85 mill/uL (4.7-6.1); RED CELL DISTRIBUTION WIDTH 15.3 % (11.6-14.6)
[2018-08-24 05:03] LABS: INR 1.1; PROTHROMBIN TIME 11.4 sec (9.1-11.1)
[2018-08-24] MEDS: BLOOD SUGAR DIAGNOSTIC STRIP TEST SCH ×4 (05:24→18:36)
[2018-08-24 07:27] LABS: PLATELET ESTIMATE NORMAL
[2018-08-24 07:52] LABS: BG BASE EXCESS -2.8 mmol/L (-2.0-2.0); BG CARBOXYHEMOGLOBIN 0.3 % (0.5-1.5); BG DEOXYHEMOGLOBIN 1.6 % (0.0-5.0); BG FRACTION INSPIRED OXYGEN 30; BG HCO3 ACT 21.2 mmol/L (22.0-26.0); BG METHEMOGLOBIN 0.3 % (0.0-1.5); BG OXYGEN SATURATION 98.4 % (92.0-98.5); BG OXYHEMOGLOBIN 97.8 % (94.0-97.0); BG PCO2 33.5 mmHg (35.0-45.0); BG PO2 124.2 mmHg (75.0-100.0); BG PRESSURE SUPPORT 10; BG SAMPLE SITE A-LINE; BG TIDAL VOLUME(mL) 600 mL; BG TOTAL HEMOGLOBIN 8.7 g/dL (12.0-18.0); BG VENT MODE VENT - SIMV
[2018-08-24] MEDS: LANTHANUM CARBONATE 500MG CHEW TABLET PO SCH ×3 (08:20→18:34)
[2018-08-24] MEDS: LEVETIRACETAM 1,000 MG in SODIUM CHLORIDE 0.9% 100 ML IV SCH ×2 (08:43→21:21)
[2018-08-24] MEDS: FAMOTIDINE 20MG/2ML VIAL IV SCH (08:43)
[2018-08-24] MEDS: PHENYTOIN SODIUM 100MG/2ML VIAL IV SCH ×2 (08:44→21:21)
[2018-08-24] MEDS: CARVEDILOL 6.25 MG TABLET PO SCH ×2 (08:45→21:21)
[2018-08-24] MEDS: DOCUSATE SODIUM SUGAR FREE 100MG/10ML UDC NG SCH ×2 (08:45→16:31)
[2018-08-24] MEDS: ASPIRIN 81MG TABLET PO SCH (08:45)
[2018-08-24] MEDS: LACTULOSE 20G/30ML UDC NG SCH ×2 (08:45→16:31)
[2018-08-24] MEDS: BACITRACIN 15GM TUBE TOP SCH ×2 (08:56→21:00)
[2018-08-24] MEDS: CEFEPIME 1,000 MG in DEXTROSE 5% WATER 50 ML IV SCH (10:41)
[2018-08-24] MEDS: INSULIN GLARGINE UD 100 UNITS/ML SYR SUBCUT SCH (10:42)
[2018-08-24] MEDS: DEXT 5%/0.45% NACL 1000ML 1,000 ML IV SCH (12:15)
[2018-08-24] MEDS ORDERED: LIDOCAINE HCL/EPINEPHRINE 1%-EPI 1:100,000 20 ML VIAL ONE (12:43)
[2018-08-24] MEDS ORDERED: VANCOMYCIN 750 MG PREMIX 150 ML IV SCH (13:00)
[2018-08-24] MEDS ORDERED: MIDAZOLAM HCL 2 MG/2 ML VIAL ONE (13:05)
[2018-08-24] MEDS ORDERED: ROCURONIUM BROMIDE 10MG/ML VIAL 5ML IV ONE (13:05)
[2018-08-25] VITALS (30 sets, daily range): BP systolic 135–173; BP diastolic 51–72
[2018-08-25] MEDS: METOCLOPRAMIDE HCL 10MG/2ML VIAL IV SCH ×5 (00:13→23:56)
[2018-08-25] MEDS: INSULIN LISPRO 100 UNITS/ML SUBCUT SCH ×5 (00:14→23:58)
[2018-08-25] MEDS: POLYVINYL ALCOHOL OPHTH DROPS 15ML BOTHEYE SCH ×5 (00:14→23:58)
[2018-08-25] MEDS: NYSTATIN 100,000 UNITS/ML 5ML UDC SSW SCH ×4 (00:45→18:02)
[2018-08-25] MEDS: IPRATROPIUM/ALBUTEROL 0.5-3(2.5)MG/3ML NEB HHN SCH ×7 (02:11→23:59)
[2018-08-25] MEDS: CLONIDINE 0.1MG TABLET PO PRN (04:11)
[2018-08-25 05:46] LABS: HEMATOCRIT. 28.4 % (42.0-52.0); HEMOGLOBIN. 9.4 g/dL (14.0-18.0); MEAN CORPUSCULAR HEMOGLOBIN 30.6 pg (28.0-32.0); MEAN PLATELET VOLUME 9.9 fl (7.4-10.4); PLATELET 182 x1000/uL (130-400); RED BLOOD CELL COUNT 3.09 mill/uL (4.7-6.1); RED CELL DISTRIBUTION WIDTH 14.7 % (11.6-14.6)
[2018-08-25] MEDS: BLOOD SUGAR DIAGNOSTIC STRIP TEST SCH ×5 (05:50→23:58)
[2018-08-25 05:52] LABS: INR 1.1; PROTHROMBIN TIME 11.5 sec (9.1-11.1)
[2018-08-25] MEDS: FAMOTIDINE 20MG/2ML VIAL IV SCH (09:05)
[2018-08-25] MEDS: LACTULOSE 20G/30ML UDC NG SCH ×2 (09:05→18:02)
[2018-08-25] MEDS: DOCUSATE SODIUM SUGAR FREE 100MG/10ML UDC NG SCH ×2 (09:05→18:02)
[2018-08-25] MEDS: PHENYTOIN SODIUM 100MG/2ML VIAL IV SCH ×2 (09:05→21:00)
[2018-08-25] MEDS: ASPIRIN 81MG TABLET PO SCH (09:06)
[2018-08-25] MEDS: LANTHANUM CARBONATE 500MG CHEW TABLET PO SCH ×3 (09:06→18:02)
[2018-08-25] MEDS: CARVEDILOL 6.25 MG TABLET PO SCH ×2 (09:06→21:00)
[2018-08-25] MEDS: LEVETIRACETAM 1,000 MG in SODIUM CHLORIDE 0.9% 100 ML IV SCH ×2 (09:07→21:00)
[2018-08-25] MEDS: BACITRACIN 15GM TUBE TOP SCH (09:46)
[2018-08-25] MEDS: INSULIN GLARGINE UD 100 UNITS/ML SYR SUBCUT SCH (10:12)
[2018-08-25 10:44] LABS: PLATELET ESTIMATE NORMAL
[2018-08-25] MEDS: DEXT 5%/0.45% NACL 1000ML 1,000 ML IV SCH (12:52)
[2018-08-26] VITALS (55 sets, daily range): BP systolic 119–191; BP diastolic 49–116
[2018-08-26] MEDS: NYSTATIN 100,000 UNITS/ML 5ML UDC SSW SCH ×5 (00:42→23:49)
[2018-08-26] MEDS: IPRATROPIUM/ALBUTEROL 0.5-3(2.5)MG/3ML NEB HHN SCH ×4 (03:55→15:42)
[2018-08-26] MEDS: BACITRACIN 15GM TUBE TOP SCH ×3 (04:05→21:51)
[2018-08-26] MEDS: BLOOD SUGAR DIAGNOSTIC STRIP TEST SCH ×4 (05:18→23:59)
[2018-08-26] MEDS: INSULIN LISPRO 100 UNITS/ML SUBCUT SCH ×4 (05:25→23:59)
[2018-08-26] MEDS: POLYVINYL ALCOHOL OPHTH DROPS 15ML BOTHEYE SCH ×3 (05:26→18:05)
[2018-08-26] MEDS: METOCLOPRAMIDE HCL 10MG/2ML VIAL IV SCH ×3 (05:26→18:03)
[2018-08-26 05:51] LABS: HEMATOCRIT. 29.6 % (42.0-52.0); HEMOGLOBIN. 9.7 g/dL (14.0-18.0); MEAN CORPUSCULAR HEMOGLOBIN 30.6 pg (28.0-32.0); MEAN CORPUSCULAR VOLUME 93.2 fL (80.0-94.0); MEAN PLATELET VOLUME 9.8 fl (7.4-10.4); PLATELET 238 x1000/uL (130-400); RED BLOOD CELL COUNT 3.18 mill/uL (4.7-6.1); RED CELL DISTRIBUTION WIDTH 15.1 % (11.6-14.6)
[2018-08-26] MEDS: HYDRALAZINE 20MG/ML VIAL IV PRN ×2 (06:03→13:04)
[2018-08-26] MEDS: LANTHANUM CARBONATE 500MG CHEW TABLET PO SCH ×3 (08:20→18:03)
[2018-08-26] MEDS: PHENYTOIN SODIUM 100MG/2ML VIAL IV SCH ×2 (08:49→22:49)
[2018-08-26] MEDS: DOCUSATE SODIUM SUGAR FREE 100MG/10ML UDC NG SCH ×2 (08:49→18:03)
[2018-08-26] MEDS: LACTULOSE 20G/30ML UDC NG SCH ×2 (08:49→18:03)
[2018-08-26] MEDS: FAMOTIDINE 20MG/2ML VIAL IV SCH (08:49)
[2018-08-26] MEDS: CARVEDILOL 6.25 MG TABLET PO SCH ×2 (08:50→21:50)
[2018-08-26] MEDS: ASPIRIN 81MG TABLET PO SCH (08:50)
[2018-08-26] MEDS: CLONIDINE 0.1MG TABLET PO PRN ×3 (08:50→15:50)
[2018-08-26] MEDS: LEVETIRACETAM 1,000 MG in SODIUM CHLORIDE 0.9% 100 ML IV SCH ×2 (08:51→22:49)
[2018-08-26] MEDS ORDERED: INSULIN GLARGINE UD 100 UNITS/ML SYR SUBCUT SCH (11:30)
[2018-08-26] MEDS: INSULIN GLARGINE UD 100 UNITS/ML SYR SUBCUT SCH (11:48)
[2018-08-26] MEDS ORDERED: MIDAZOLAM HCL 5 MG/5 ML VIAL ONE (15:06)
[2018-08-26] MEDS ORDERED: FENTANYL CITRATE/PF 50MCG/ML 2ML VIAL ONE (15:06)
[2018-08-26 15:24] LABS: PLATELET ESTIMATE NORMAL
[2018-08-27] VITALS (21 sets, daily range): BP systolic 123–161; BP diastolic 51–89
[2018-08-27] MEDS: METOCLOPRAMIDE HCL 10MG/2ML VIAL IV SCH ×5 (00:06→23:13)
[2018-08-27] MEDS: POLYVINYL ALCOHOL OPHTH DROPS 15ML BOTHEYE SCH ×5 (00:07→23:13)
[2018-08-27] MEDS: IPRATROPIUM/ALBUTEROL 0.5-3(2.5)MG/3ML NEB HHN SCH ×7 (00:34→23:57)
[2018-08-27 05:22] LABS: HEMATOCRIT. 24.1 % (42.0-52.0); HEMOGLOBIN. 7.9 g/dL (14.0-18.0); MEAN CORPUSCULAR HEMOGLOBIN 30.3 pg (28.0-32.0); MEAN CORPUSCULAR VOLUME 92.3 fL (80.0-94.0); MEAN PLATELET VOLUME 9.8 fl (7.4-10.4); PLATELET 234 x1000/uL (130-400); RED BLOOD CELL COUNT 2.61 mill/uL (4.7-6.1); RED CELL DISTRIBUTION WIDTH 14.6 % (11.6-14.6)
[2018-08-27 05:55] LABS: PHOSPHORUS 7.6 mg/dL (2.5-4.9)
[2018-08-27] MEDS: BLOOD SUGAR DIAGNOSTIC STRIP TEST SCH ×4 (06:02→23:13)
[2018-08-27] MEDS: INSULIN LISPRO 100 UNITS/ML SUBCUT SCH ×4 (06:04→23:19)
[2018-08-27] MEDS: NYSTATIN 100,000 UNITS/ML 5ML UDC SSW SCH ×3 (06:05→17:21)
[2018-08-27] MEDS: LANTHANUM CARBONATE 500MG CHEW TABLET PO SCH ×2 (08:00→13:00)
[2018-08-27] MEDS: LACTULOSE 20G/30ML UDC NG SCH ×2 (09:00→17:21)
[2018-08-27] MEDS: CARVEDILOL 6.25 MG TABLET PO SCH ×2 (09:00→20:34)
[2018-08-27] MEDS: DOCUSATE SODIUM SUGAR FREE 100MG/10ML UDC NG SCH ×2 (09:00→17:21)
[2018-08-27] MEDS: PHENYTOIN SODIUM 100MG/2ML VIAL IV SCH ×2 (11:07→20:34)
[2018-08-27] MEDS: FAMOTIDINE 20MG/2ML VIAL IV SCH (11:08)
[2018-08-27] MEDS: ASPIRIN 81MG TABLET PO SCH (11:08)
[2018-08-27] MEDS: BACITRACIN 15GM TUBE TOP SCH ×2 (11:09→20:35)
[2018-08-27] MEDS: INSULIN GLARGINE UD 100 UNITS/ML SYR SUBCUT SCH (11:28)
[2018-08-27 11:58] LABS: PLATELET ESTIMATE NORMAL
[2018-08-27] MEDS: LEVETIRACETAM 1,000 MG in SODIUM CHLORIDE 0.9% 100 ML IV SCH ×2 (13:02→21:37)
[2018-08-27] MEDS: ACETAMINOPHEN 325MG TABLET PO PRN (17:16)
[2018-08-27] MEDS: HYDRALAZINE 20MG/ML VIAL IV PRN (17:16)
[2018-08-28] VITALS (12 sets, daily range): BP systolic 134–174; BP diastolic 55–71
[2018-08-28] MEDS: NYSTATIN 100,000 UNITS/ML 5ML UDC SSW SCH ×4 (00:35→18:00)
[2018-08-28] MEDS: CLONIDINE 0.1MG TABLET PO PRN (02:12)
[2018-08-28] MEDS: IPRATROPIUM/ALBUTEROL 0.5-3(2.5)MG/3ML NEB HHN SCH ×5 (04:02→20:54)
[2018-08-28] MEDS: METOCLOPRAMIDE HCL 10MG/2ML VIAL IV SCH ×3 (05:34→17:11)
[2018-08-28] MEDS: POLYVINYL ALCOHOL OPHTH DROPS 15ML BOTHEYE SCH ×3 (05:34→17:12)
[2018-08-28] MEDS: BLOOD SUGAR DIAGNOSTIC STRIP TEST SCH ×3 (05:41→17:11)
[2018-08-28] MEDS: INSULIN LISPRO 100 UNITS/ML SUBCUT SCH ×3 (05:41→17:27)
[2018-08-28] MEDS: HYDRALAZINE 20MG/ML VIAL IV PRN (06:27)
[2018-08-28] MEDS: LEVETIRACETAM 1,000 MG in SODIUM CHLORIDE 0.9% 100 ML IV SCH ×2 (08:24→21:04)
[2018-08-28] MEDS: BACITRACIN 15GM TUBE TOP SCH ×2 (08:24→21:12)
[2018-08-28] MEDS: FAMOTIDINE 20MG/2ML VIAL IV SCH (08:25)
[2018-08-28] MEDS: LACTULOSE 20G/30ML UDC NG SCH ×2 (08:25→17:11)
[2018-08-28] MEDS: CARVEDILOL 6.25 MG TABLET PO SCH ×2 (08:25→20:51)
[2018-08-28] MEDS: DOCUSATE SODIUM SUGAR FREE 100MG/10ML UDC NG SCH ×2 (08:25→17:11)
[2018-08-28] MEDS: PHENYTOIN SODIUM 100MG/2ML VIAL IV SCH ×2 (08:25→20:50)
[2018-08-28] MEDS: ASPIRIN 81MG TABLET PO SCH (08:25)
[2018-08-28] MEDS: INSULIN GLARGINE UD 100 UNITS/ML SYR SUBCUT SCH (10:33)
[2018-08-28 16:35] LABS: HEMATOCRIT. 28.2 % (42.0-52.0); HEMOGLOBIN. 9.1 g/dL (14.0-18.0); MEAN CORPUSCULAR HEMOGLOBIN 29.4 pg (28.0-32.0); MEAN CORPUSCULAR VOLUME 91.7 fL (80.0-94.0); MEAN PLATELET VOLUME 9.5 fl (7.4-10.4); PLATELET 302 x1000/uL (130-400); RED BLOOD CELL COUNT 3.08 mill/uL (4.7-6.1); RED CELL DISTRIBUTION WIDTH 14.9 % (11.6-14.6)
[2018-08-28 16:53] LABS: PHOSPHORUS 6.6 mg/dL (2.5-4.9)
[2018-08-28 16:55] LABS: PLATELET ESTIMATE NORMAL
[2018-08-29] VITALS (8 sets, daily range): BP systolic 142–170; BP diastolic 57–70
[2018-08-29] MEDS: IPRATROPIUM/ALBUTEROL 0.5-3(2.5)MG/3ML NEB HHN SCH ×6 (00:26→20:54)
[2018-08-29] MEDS: METOCLOPRAMIDE HCL 10MG/2ML VIAL IV SCH ×3 (00:33→13:28)
[2018-08-29] MEDS: BLOOD SUGAR DIAGNOSTIC STRIP TEST SCH ×5 (00:37→23:04)
[2018-08-29] MEDS: INSULIN LISPRO 100 UNITS/ML SUBCUT SCH ×5 (00:37→23:49)
[2018-08-29] MEDS: POLYVINYL ALCOHOL OPHTH DROPS 15ML BOTHEYE SCH ×5 (00:45→23:04)
[2018-08-29] MEDS: NYSTATIN 100,000 UNITS/ML 5ML UDC SSW SCH ×5 (06:00→23:57)
[2018-08-29] MEDS: LEVETIRACETAM 1,000 MG in SODIUM CHLORIDE 0.9% 100 ML IV SCH ×2 (09:00→21:15)
[2018-08-29] MEDS: PHENYTOIN SODIUM 100MG/2ML VIAL IV SCH ×2 (09:00→21:16)
[2018-08-29] MEDS: DOCUSATE SODIUM SUGAR FREE 100MG/10ML UDC NG SCH ×2 (09:00→17:46)
[2018-08-29] MEDS: CARVEDILOL 6.25 MG TABLET PO SCH ×2 (09:00→21:15)
[2018-08-29] MEDS: LACTULOSE 20G/30ML UDC NG SCH (09:00)
[2018-08-29] MEDS: INSULIN GLARGINE UD 100 UNITS/ML SYR SUBCUT SCH (10:27)
[2018-08-29] MEDS: BACITRACIN 15GM TUBE TOP SCH ×2 (10:28→21:17)
[2018-08-29] MEDS: ASPIRIN 81MG TABLET PO SCH (13:28)
[2018-08-29] MEDS: FAMOTIDINE 20MG/2ML VIAL IV SCH (13:28)
[2018-08-29] MEDS: HYDRALAZINE 20MG/ML VIAL IV PRN (14:00)
[2018-08-30] VITALS (10 sets, daily range): BP systolic 126–169; BP diastolic 55–74
[2018-08-30] MEDS: IPRATROPIUM/ALBUTEROL 0.5-3(2.5)MG/3ML NEB HHN SCH ×6 (00:51→20:24)
[2018-08-30] MEDS: NYSTATIN 100,000 UNITS/ML 5ML UDC SSW SCH ×4 (05:05→23:20)
[2018-08-30] MEDS: POLYVINYL ALCOHOL OPHTH DROPS 15ML BOTHEYE SCH ×4 (05:05→23:20)
[2018-08-30] MEDS: BLOOD SUGAR DIAGNOSTIC STRIP TEST SCH ×4 (05:28→23:20)
[2018-08-30] MEDS: INSULIN LISPRO 100 UNITS/ML SUBCUT SCH ×4 (05:47→23:19)
[2018-08-30] MEDS: PHENYTOIN SODIUM 100MG/2ML VIAL IV SCH ×2 (08:57→20:52)
[2018-08-30] MEDS: DOCUSATE SODIUM SUGAR FREE 100MG/10ML UDC NG SCH ×2 (08:57→17:58)
[2018-08-30] MEDS: FAMOTIDINE 20MG/2ML VIAL IV SCH (08:57)
[2018-08-30] MEDS: CARVEDILOL 6.25 MG TABLET PO SCH ×2 (08:57→20:53)
[2018-08-30] MEDS: ASPIRIN 81MG TABLET PO SCH (08:57)
[2018-08-30] MEDS: BACITRACIN 15GM TUBE TOP SCH ×2 (08:58→20:53)
[2018-08-30] MEDS: LEVETIRACETAM 1,000 MG in SODIUM CHLORIDE 0.9% 100 ML IV SCH ×2 (09:11→20:52)
[2018-08-30] MEDS: INSULIN GLARGINE UD 100 UNITS/ML SYR SUBCUT SCH (10:42)
[2018-08-31] VITALS (10 sets, daily range): BP systolic 145–188; BP diastolic 60–78
[2018-08-31] MEDS: IPRATROPIUM/ALBUTEROL 0.5-3(2.5)MG/3ML NEB HHN SCH ×4 (00:25→21:10)
[2018-08-31] MEDS: INSULIN LISPRO 100 UNITS/ML SUBCUT SCH ×3 (05:25→17:54)
[2018-08-31] MEDS: BLOOD SUGAR DIAGNOSTIC STRIP TEST SCH ×4 (05:25→23:51)
[2018-08-31] MEDS: NYSTATIN 100,000 UNITS/ML 5ML UDC SSW SCH ×4 (05:25→23:51)
[2018-08-31] MEDS: POLYVINYL ALCOHOL OPHTH DROPS 15ML BOTHEYE SCH ×4 (05:26→23:52)
[2018-08-31] MEDS: CLONIDINE 0.1MG TABLET PO PRN ×2 (06:43→19:32)
[2018-08-31 10:26] LABS: HEMATOCRIT. 27.8 % (42.0-52.0); HEMOGLOBIN. 9.2 g/dL (14.0-18.0); MEAN CORPUSCULAR HEMOGLOBIN 30.5 pg (28.0-32.0); MEAN CORPUSCULAR VOLUME 92.3 fL (80.0-94.0); PLATELET 330 x1000/uL (130-400); RED BLOOD CELL COUNT 3.01 mill/uL (4.7-6.1); RED CELL DISTRIBUTION WIDTH 14.5 % (11.6-14.6)
[2018-08-31] MEDS: LEVETIRACETAM 1,000 MG in SODIUM CHLORIDE 0.9% 100 ML IV SCH ×2 (12:10→21:01)
[2018-08-31] MEDS: PHENYTOIN SODIUM 100MG/2ML VIAL IV SCH ×2 (12:11→21:02)
[2018-08-31] MEDS: FAMOTIDINE 20MG/2ML VIAL IV SCH (12:11)
[2018-08-31] MEDS: CARVEDILOL 6.25 MG TABLET PO SCH ×2 (12:13→21:02)
[2018-08-31] MEDS: ASPIRIN 81MG TABLET PO SCH (12:13)
[2018-08-31] MEDS: DOCUSATE SODIUM SUGAR FREE 100MG/10ML UDC NG SCH ×2 (12:13→17:54)
[2018-08-31] MEDS: BACITRACIN 15GM TUBE TOP SCH ×2 (12:14→21:03)
[2018-08-31] MEDS: INSULIN GLARGINE UD 100 UNITS/ML SYR SUBCUT SCH (12:15)
[2018-08-31 13:46] LABS: PLATELET ESTIMATE NORMAL
[2018-09-01] VITALS (12 sets, daily range): BP systolic 139–172; BP diastolic 62–78
[2018-09-01] MEDS: INSULIN LISPRO 100 UNITS/ML SUBCUT SCH ×4 (00:01→18:30)
[2018-09-01] MEDS: IPRATROPIUM/ALBUTEROL 0.5-3(2.5)MG/3ML NEB HHN SCH ×6 (00:24→20:33)
[2018-09-01] MEDS: BLOOD SUGAR DIAGNOSTIC STRIP TEST SCH ×3 (05:09→18:27)
[2018-09-01] MEDS: POLYVINYL ALCOHOL OPHTH DROPS 15ML BOTHEYE SCH ×3 (05:09→18:27)
[2018-09-01] MEDS: NYSTATIN 100,000 UNITS/ML 5ML UDC SSW SCH ×3 (05:12→18:27)
[2018-09-01] MEDS: FAMOTIDINE 20MG/2ML VIAL IV SCH (09:00)
[2018-09-01] MEDS: PHENYTOIN SODIUM 100MG/2ML VIAL IV SCH ×2 (09:00→21:45)
[2018-09-01] MEDS: LEVETIRACETAM 1,000 MG in SODIUM CHLORIDE 0.9% 100 ML IV SCH ×2 (09:00→21:44)
[2018-09-01] MEDS: DOCUSATE SODIUM SUGAR FREE 100MG/10ML UDC NG SCH ×2 (09:01→18:27)
[2018-09-01] MEDS: ASPIRIN 81MG TABLET PO SCH (09:01)
[2018-09-01] MEDS: CARVEDILOL 6.25 MG TABLET PO SCH ×2 (09:02→21:45)
[2018-09-01] MEDS: BACITRACIN 15GM TUBE TOP SCH ×2 (09:03→21:46)
[2018-09-01] MEDS: INSULIN GLARGINE UD 100 UNITS/ML SYR SUBCUT SCH (10:16)
[2018-09-01 14:42] LABS: BG BASE EXCESS -2.5 mmol/L (-2.0-2.0); BG CARBOXYHEMOGLOBIN 0.9 % (0.5-1.5); BG DEOXYHEMOGLOBIN 3.9 % (0.0-5.0); BG FRACTION INSPIRED OXYGEN 35; BG HCO3 ACT 21.6 mmol/L (22.0-26.0); BG METHEMOGLOBIN 0.1 % (0.0-1.5); BG OXYGEN SATURATION 96.1 % (92.0-98.5); BG OXYHEMOGLOBIN 95.1 % (94.0-97.0); BG PCO2 34.2 mmHg (35.0-45.0); BG PH 7.418 (7.350-7.450); BG PO2 88.4 mmHg (75.0-100.0); BG PRESSURE SUPPORT 12; BG SAMPLE SITE LEFT BRACHIAL; BG TIDAL VOLUME(mL) 500 mL; BG TOTAL HEMOGLOBIN 8.3 g/dL (12.0-18.0); BG VENT MODE VENT - SIMV; BG VENT RATE 6 set
[2018-09-02] VITALS (13 sets, daily range): BP systolic 130–176; BP diastolic 52–74
[2018-09-02] MEDS: IPRATROPIUM/ALBUTEROL 0.5-3(2.5)MG/3ML NEB HHN SCH ×6 (00:30→20:26)
[2018-09-02] MEDS: INSULIN LISPRO 100 UNITS/ML SUBCUT SCH ×5 (00:34→23:49)
[2018-09-02] MEDS: BLOOD SUGAR DIAGNOSTIC STRIP TEST SCH ×5 (00:34→23:49)
[2018-09-02] MEDS: NYSTATIN 100,000 UNITS/ML 5ML UDC SSW SCH ×6 (00:34→23:48)
[2018-09-02] MEDS: POLYVINYL ALCOHOL OPHTH DROPS 15ML BOTHEYE SCH ×5 (00:35→23:49)
[2018-09-02] MEDS: HYDRALAZINE 20MG/ML VIAL IV PRN ×2 (03:17→08:40)
[2018-09-02 07:22] LABS: HEMATOCRIT. 25.9 % (42.0-52.0); HEMOGLOBIN. 8.5 g/dL (14.0-18.0); MEAN CORPUSCULAR HEMOGLOBIN 30.1 pg (28.0-32.0); MEAN CORPUSCULAR VOLUME 92.4 fL (80.0-94.0); MEAN PLATELET VOLUME 9.9 fl (7.4-10.4); PLATELET 273 x1000/uL (130-400); RED BLOOD CELL COUNT 2.81 mill/uL (4.7-6.1); RED CELL DISTRIBUTION WIDTH 14.3 % (11.6-14.6)
[2018-09-02] MEDS: FAMOTIDINE 20MG/2ML VIAL IV SCH (08:40)
[2018-09-02] MEDS: PHENYTOIN SODIUM 100MG/2ML VIAL IV SCH ×2 (08:40→21:16)
[2018-09-02] MEDS: ASPIRIN 81MG TABLET PO SCH (08:41)
[2018-09-02] MEDS: CARVEDILOL 6.25 MG TABLET PO SCH ×2 (08:41→21:16)
[2018-09-02] MEDS: DOCUSATE SODIUM SUGAR FREE 100MG/10ML UDC NG SCH ×2 (08:41→17:34)
[2018-09-02] MEDS: BACITRACIN 15GM TUBE TOP SCH ×2 (08:42→21:17)
[2018-09-02] MEDS: LEVETIRACETAM 1,000 MG in SODIUM CHLORIDE 0.9% 100 ML IV SCH ×2 (09:01→21:15)
[2018-09-02] MEDS: INSULIN GLARGINE UD 100 UNITS/ML SYR SUBCUT SCH (10:08)
[2018-09-02 13:16] LABS: PLATELET ESTIMATE NORMAL
[2018-09-03] VITALS (15 sets, daily range): BP systolic 122–172; BP diastolic 50–76
[2018-09-03] MEDS: IPRATROPIUM/ALBUTEROL 0.5-3(2.5)MG/3ML NEB HHN SCH ×7 (00:28→23:59)
[2018-09-03] MEDS: NYSTATIN 100,000 UNITS/ML 5ML UDC SSW SCH ×3 (05:08→17:40)
[2018-09-03] MEDS: POLYVINYL ALCOHOL OPHTH DROPS 15ML BOTHEYE SCH ×3 (05:08→17:51)
[2018-09-03] MEDS: BLOOD SUGAR DIAGNOSTIC STRIP TEST SCH ×3 (05:36→18:07)
[2018-09-03] MEDS: INSULIN LISPRO 100 UNITS/ML SUBCUT SCH ×3 (05:36→18:47)
[2018-09-03 06:48] LABS: HEMATOCRIT. 26.2 % (42.0-52.0); HEMOGLOBIN. 8.6 g/dL (14.0-18.0); MEAN CORPUSCULAR HEMOGLOBIN 30.2 pg (28.0-32.0); MEAN CORPUSCULAR VOLUME 92.3 fL (80.0-94.0); MEAN PLATELET VOLUME 9.7 fl (7.4-10.4); PLATELET 228 x1000/uL (130-400); RED BLOOD CELL COUNT 2.84 mill/uL (4.7-6.1); RED CELL DISTRIBUTION WIDTH 14.4 % (11.6-14.6)
[2018-09-03] MEDS: AMLODIPINE 10MG TABLET PO SCH (09:00)
[2018-09-03] MEDS: CARVEDILOL 6.25 MG TABLET PO SCH ×2 (09:00→21:26)
[2018-09-03] MEDS: ASPIRIN 81MG TABLET PO SCH (10:28)
[2018-09-03] MEDS: LEVETIRACETAM 1,000 MG in SODIUM CHLORIDE 0.9% 100 ML IV SCH ×2 (10:29→21:25)
[2018-09-03] MEDS: FAMOTIDINE 20MG/2ML VIAL IV SCH (10:29)
[2018-09-03 10:52] LABS: PLATELET ESTIMATE NORMAL
[2018-09-03] MEDS: INSULIN GLARGINE UD 100 UNITS/ML SYR SUBCUT SCH (12:01)
[2018-09-03] MEDS: DOCUSATE SODIUM SUGAR FREE 100MG/10ML UDC NG SCH ×2 (12:09→17:39)
[2018-09-03] MEDS: PHENYTOIN SODIUM 100MG/2ML VIAL IV SCH ×2 (12:09→21:25)
[2018-09-03] MEDS: BACITRACIN 15GM TUBE TOP SCH ×2 (12:10→21:27)
[2018-09-04] VITALS (19 sets, daily range): BP systolic 126–163; BP diastolic 52–69
[2018-09-04] MEDS: POLYVINYL ALCOHOL OPHTH DROPS 15ML BOTHEYE SCH ×4 (00:25→17:13)
[2018-09-04] MEDS: BLOOD SUGAR DIAGNOSTIC STRIP TEST SCH ×4 (00:25→17:13)
[2018-09-04] MEDS: NYSTATIN 100,000 UNITS/ML 5ML UDC SSW SCH ×4 (00:35→17:13)
[2018-09-04] MEDS: IPRATROPIUM/ALBUTEROL 0.5-3(2.5)MG/3ML NEB HHN SCH ×5 (03:58→20:35)
[2018-09-04] MEDS: INSULIN LISPRO 100 UNITS/ML SUBCUT SCH ×4 (06:47→17:13)
[2018-09-04] MEDS: LEVETIRACETAM 1,000 MG in SODIUM CHLORIDE 0.9% 100 ML IV SCH ×2 (09:00→21:49)
[2018-09-04] MEDS: DOCUSATE SODIUM SUGAR FREE 100MG/10ML UDC NG SCH ×2 (09:00→17:13)
[2018-09-04] MEDS: ASPIRIN 81MG TABLET PO SCH (09:00)
[2018-09-04] MEDS: FAMOTIDINE 20MG/2ML VIAL IV SCH (09:00)
[2018-09-04] MEDS: AMLODIPINE 10MG TABLET PO SCH (09:00)
[2018-09-04] MEDS: CARVEDILOL 6.25 MG TABLET PO SCH ×2 (09:00→21:48)
[2018-09-04] MEDS: PHENYTOIN SODIUM 100MG/2ML VIAL IV SCH ×2 (09:00→21:45)
[2018-09-04] MEDS: INSULIN GLARGINE UD 100 UNITS/ML SYR SUBCUT SCH (10:00)
[2018-09-04] MEDS: BACITRACIN 15GM TUBE TOP SCH ×2 (10:00→21:49)
[2018-09-05] VITALS (13 sets, daily range): BP systolic 113–145; BP diastolic 52–74
[2018-09-05] MEDS: IPRATROPIUM/ALBUTEROL 0.5-3(2.5)MG/3ML NEB HHN SCH ×5 (00:32→16:13)
[2018-09-05] MEDS: ACETAMINOPHEN 325MG TABLET PO PRN (01:17)
[2018-09-05] MEDS: POLYVINYL ALCOHOL OPHTH DROPS 15ML BOTHEYE SCH ×4 (01:21→18:03)
[2018-09-05] MEDS: NYSTATIN 100,000 UNITS/ML 5ML UDC SSW SCH ×3 (01:21→18:07)
[2018-09-05] MEDS: INSULIN LISPRO 100 UNITS/ML SUBCUT SCH ×4 (01:26→18:02)
[2018-09-05] MEDS: BLOOD SUGAR DIAGNOSTIC STRIP TEST SCH ×4 (06:48→18:00)
[2018-09-05] MEDS: ASPIRIN 81MG TABLET PO SCH (08:32)
[2018-09-05] MEDS: LEVETIRACETAM 1,000 MG in SODIUM CHLORIDE 0.9% 100 ML IV SCH (08:39)
[2018-09-05] MEDS: DOCUSATE SODIUM SUGAR FREE 100MG/10ML UDC NG SCH ×2 (08:40→18:03)
[2018-09-05] MEDS: PHENYTOIN SODIUM 100MG/2ML VIAL IV SCH (08:40)
[2018-09-05] MEDS: AMLODIPINE 10MG TABLET PO SCH (08:41)
[2018-09-05] MEDS: CARVEDILOL 6.25 MG TABLET PO SCH (08:57)
[2018-09-05] MEDS: BACITRACIN 15GM TUBE TOP SCH (08:57)
[2018-09-05] MEDS: FAMOTIDINE 20MG/2ML VIAL IV SCH (08:57)
[2018-09-05] MEDS: INSULIN GLARGINE UD 100 UNITS/ML SYR SUBCUT SCH (13:09)
== END 2018-09-05 23:27 | DRG 4 ==
LOC: ER 20:55 → 5EST 22:35 → EDBEDREQTM 22:37 → EDBEDREQ 22:37 → ENRESERV 23:34 → 5EST 08-10 02:01 → CVICU 08-10 13:35 → 5EST 08-26 20:39
PROVIDERS: ADMIT Hospitalist; ATTEND Hospitalist
PROC: 5A09357 Assistance with Respiratory Ventilation, Less than 24 Consecutive Hours, Continuous Positive Airway Pressure (ICD-10-PCS; 2018-08-09)
PROC: 5A1D70Z Performance of Urinary Filtration, Intermittent, Less than 6 Hours Per Day (ICD-10-PCS; 2018-08-11)
PROC: 02HV33Z Insertion of Infusion Device into Superior Vena Cava, Percutaneous Approach (ICD-10-PCS; 2018-08-11)
PROC: B548ZZA Ultrasonography of Superior Vena Cava, Guidance (ICD-10-PCS; 2018-08-11)
PROC: 4A023N7 Measurement of Cardiac Sampling and Pressure, Left Heart, Percutaneous Approach (ICD-10-PCS; 2018-08-13)
PROC: B2111ZZ Fluoroscopy of Multiple Coronary Arteries using Low Osmolar Contrast (ICD-10-PCS; 2018-08-13)
PROC: B2151ZZ Fluoroscopy of Left Heart using Low Osmolar Contrast (ICD-10-PCS; 2018-08-13)
PROC: 5A1D70Z Performance of Urinary Filtration, Intermittent, Less than 6 Hours Per Day (ICD-10-PCS; 2018-08-13)
PROC: 30233N1 Transfusion of Nonautologous Red Blood Cells into Peripheral Vein, Percutaneous Approach (ICD-10-PCS; 2018-08-14)
PROC: 5A1D70Z Performance of Urinary Filtration, Intermittent, Less than 6 Hours Per Day (ICD-10-PCS; 2018-08-14)
PROC: 02100Z9 Bypass Coronary Artery, One Artery from Left Internal Mammary, Open Approach (ICD-10-PCS; principal; 2018-08-15)
PROC: 021109W Bypass Coronary Artery, Two Arteries from Aorta with Autologous Venous Tissue, Open Approach (ICD-10-PCS; 2018-08-15)
PROC: 06BQ0ZZ Excision of Left Saphenous Vein, Open Approach (ICD-10-PCS; 2018-08-15)
PROC: 03B10ZZ Excision of Left Internal Mammary Artery, Open Approach (ICD-10-PCS; 2018-08-15)
PROC: B24BZZ4 Ultrasonography of Heart with Aorta, Transesophageal (ICD-10-PCS; 2018-08-15)
PROC: 5A1D70Z Performance of Urinary Filtration, Intermittent, Less than 6 Hours Per Day (ICD-10-PCS; 2018-08-15)
PROC: 0BH17EZ Insertion of Endotracheal Airway into Trachea, Via Natural or Artificial Opening (ICD-10-PCS; 2018-08-15)
PROC: 5A1955Z Respiratory Ventilation, Greater than 96 Consecutive Hours (ICD-10-PCS; 2018-08-15)
PROC: 0W3C0ZZ Control Bleeding in Mediastinum, Open Approach (ICD-10-PCS; 2018-08-15)
PROC: 5A12012 Performance of Cardiac Output, Single, Manual (ICD-10-PCS; 2018-08-16)
PROC: 0WJC0ZZ Inspection of Mediastinum, Open Approach (ICD-10-PCS; 2018-08-16)
PROC: 0W9B30Z Drainage of Left Pleural Cavity with Drainage Device, Percutaneous Approach (ICD-10-PCS; 2018-08-16)
PROC: 4A00X4Z Measurement of Central Nervous Electrical Activity, External Approach (ICD-10-PCS; 2018-08-16)
PROC: 30233K1 Transfusion of Nonautologous Frozen Plasma into Peripheral Vein, Percutaneous Approach (ICD-10-PCS; 2018-08-16)
PROC: 5A1D70Z Performance of Urinary Filtration, Intermittent, Less than 6 Hours Per Day (ICD-10-PCS; 2018-08-18)
PROC: 02HV33Z Insertion of Infusion Device into Superior Vena Cava, Percutaneous Approach (ICD-10-PCS; 2018-08-18)
PROC: B548ZZA Ultrasonography of Superior Vena Cava, Guidance (ICD-10-PCS; 2018-08-18)
PROC: 5A1D70Z Performance of Urinary Filtration, Intermittent, Less than 6 Hours Per Day (ICD-10-PCS; 2018-08-20)
PROC: 5A1D70Z Performance of Urinary Filtration, Intermittent, Less than 6 Hours Per Day (ICD-10-PCS; 2018-08-21)
PROC: 4A00X4Z Measurement of Central Nervous Electrical Activity, External Approach (ICD-10-PCS; 2018-08-23)
PROC: 5A1D70Z Performance of Urinary Filtration, Intermittent, Less than 6 Hours Per Day (ICD-10-PCS; 2018-08-23)
PROC: 0B110F4 Bypass Trachea to Cutaneous with Tracheostomy Device, Open Approach (ICD-10-PCS; 2018-08-24)
PROC: 5A1955Z Respiratory Ventilation, Greater than 96 Consecutive Hours (ICD-10-PCS; 2018-08-24)
PROC: 0DH63UZ Insertion of Feeding Device into Stomach, Percutaneous Approach (ICD-10-PCS; 2018-08-26)
PROC: 5A1D70Z Performance of Urinary Filtration, Intermittent, Less than 6 Hours Per Day (ICD-10-PCS; 2018-08-27)
PROC: 5A1D70Z Performance of Urinary Filtration, Intermittent, Less than 6 Hours Per Day (ICD-10-PCS; 2018-08-28)
PROC: 5A1D70Z Performance of Urinary Filtration, Intermittent, Less than 6 Hours Per Day (ICD-10-PCS; 2018-08-30)
PROC: 5A1D70Z Performance of Urinary Filtration, Intermittent, Less than 6 Hours Per Day (ICD-10-PCS; 2018-09-03)
PROC: 5A1D70Z Performance of Urinary Filtration, Intermittent, Less than 6 Hours Per Day (ICD-10-PCS; 2018-09-05)
DX: I21.4 Non-ST elevation (NSTEMI) myocardial infarction (principal); I25.42 Coronary artery dissection; G93.6 Cerebral edema; I31.4 Cardiac tamponade; E43 Unspecified severe protein-calorie malnutrition; A41.9 Sepsis, unspecified organism; I63.9 Cerebral infarction, unspecified; G93.1 Anoxic brain damage, not elsewhere classified; J69.0 Pneumonitis due to inhalation of food and vomit; K85.90 Acute pancreatitis without necrosis or infection, unspecified; D68.9 Coagulation defect, unspecified; E11.21 Type 2 diabetes mellitus with diabetic nephropathy; I13.2 Hypertensive heart and chronic kidney disease with heart failure and with stage 5 chronic kidney disease, or end stage renal disease; I46.9 Cardiac arrest, cause unspecified; N17.9 Acute kidney failure, unspecified; N18.6 End stage renal disease; J44.0 Chronic obstructive pulmonary disease with (acute) lower respiratory infection; E87.2 Acidosis; I50.43 Acute on chronic combined systolic (congestive) and diastolic (congestive) heart failure; E11.65 Type 2 diabetes mellitus with hyperglycemia; E78.5 Hyperlipidemia, unspecified; J44.1 Chronic obstructive pulmonary disease with (acute) exacerbation; Z83.3 Family history of diabetes mellitus; I25.5 Ischemic cardiomyopathy; E11.22 Type 2 diabetes mellitus with diabetic chronic kidney disease; D69.6 Thrombocytopenia, unspecified; E78.00 Pure hypercholesterolemia, unspecified; E83.39 Other disorders of phosphorus metabolism; F17.210 Nicotine dependence, cigarettes, uncomplicated; G25.3 Myoclonus; I25.10 Atherosclerotic heart disease of native coronary artery without angina pectoris; I25.2 Old myocardial infarction; I82.B12 Acute embolism and thrombosis of left subclavian vein; D50.0 Iron deficiency anemia secondary to blood loss (chronic); I31.3 Pericardial effusion (noninflammatory); J96.01 Acute respiratory failure with hypoxia; K72.00 Acute and subacute hepatic failure without coma; R13.10 Dysphagia, unspecified; Z86.73 Personal history of transient ischemic attack (TIA), and cerebral infarction without residual deficits; Z99.11 Dependence on respirator [ventilator] status; Z99.2 Dependence on renal dialysis; I97.89 Other postprocedural complications and disorders of the circulatory system, not elsewhere classified
CPT/HCPCS: 36415; 36569; 36600; 70551; 71045; 74018; 76770; 76937; 80048; 80061; 80076; 80185; 80202; 80305; 82040; 82140; 82150; 82248; 82375; 82550; 82553; 82805; 82962; 83036; 83735; 83880; 83970; 84100; 84134; 84145; 84439; 84443; 84484; 85027; 85347; 85520; 86705; 86706; 86803; 86850; 86900; 86920; 86927; 87070; 87340; 92950; 93005; 93306; 93458; 93880; 93970; 94002; 94003; 94640; 94660; 96365; 96367; 96375; 99291; C1725; C1729; C1751; C1760; C1769; C1887; C1893; C9113; J0282; J0360; J0690; J0692; J1165; J1250; J1265; J1644; J1650; J1815; J1940; J1953; J1956; J2060; J2150; J2250; J2270; J2370; J2405; J2440; J2543; J2597; J2720; J2765; J2920; J2930; J3010; J3370; J3475; J3490; J7040; J7042; J7050; J7060; J7189; J7611; J7620; L3908; P9016; P9017; P9034; P9041; P9047; Q9967; Q9968